=== PATIENT | female | born 2005 | race African-American/Black ===

== ENCOUNTER 2023-10-16 17:34 | Inpatient (IN) ==
[2023-10-16] MEDS ORDERED: Patient's ALLERGY Info needs ENTERED SCH (17:55)
[2023-10-16 18:59] LABS: Influenza A virus by PCR Negative (Neg); Influenza B virus by PCR Negative (Neg); RSV by PCR Negative (Neg); SARS CoV2 RNA(COVID-19) Ceph POSITIVE (Negative)
--- NOTE | 2023-10-16 19:14 | Emergency Department Note ---
Impression & Plan COVID-19, Anemia, Asplenia, Sickle cell anemia ED Provider Note NAME: FELICIANO FUENTES AGE: 18 SEX: F : 2005 ARRIVES VIA: Walk-In INFORMANT: Patient, ED PROVIDER(S): Jenifer Romero MD CHIEF COMPLAINT: Fever, cough, sickle cell HPI: This is a 18 old female presenting for fever, cough and sickle cell disease. Patient has a history of sickle cell, follows with [facility]. She is asplenic. Notes that over the past 3 days she has developed a fever, cough, congestion. She notes she has had previous acute chest and this feels much less severe. She notes some taking Motrin for fever. Otherwise she notes no abdominal pain, chest pain, nausea, vomiting or diarrhea. ROS: See above HPI for pertinent positives & negatives. A total of 10 systems reviewed and were otherwise negative. PAST MEDICAL HISTORY: See Below PAST SURGICAL HISTORY: See Below FAMILY HISTORY: See Below SOCIAL HISTORY: See Below HOME MEDICATIONS: See Below ALLERGIES: See Below VITALS: See Below PHYSICAL EXAMINATION: General: resting comfortably in no acute distress Head: Normocephalic and atraumatic Eyes: Normal inspection, extraocular muscles intact Ear, nose, throat: Normal external exam Neck: Normal range of motion Respiratory: lungs clear to auscultation bilaterally Cardiovascular: Regular rate/rhythm, no murmur GI: soft, nontender, no guarding or rebound Extremities: nontender, moves all extremities Neuro: The patient awake and alert, appropriately conversive, no focal deficits, symmetric faces Skin: Warm, dry, and intact MEDICAL DECISION MAKING: This is a pleasant 18-year-old female sent for fever, cough in the setting of sickle cell disease. Will rule out acute chest as well as other abnormalities with blood work. Will check for liver function, hemolytic anemia, pneumonia or acute chest. -Chest Xray independently interpreted by me showing no pneumothorax, focal opacity, or pleural effusions. -Patient blood come to the with leukocytosis of 12.24, otherwise anemia of 6.3. -She has slight hypokalemia to 3.2 at this time. Otherwise electrolytes are within normal limits. She is COVID-19 positive at this time. -Reticulocyte count is not low -Overall she is well-appearing however with her asplenia, will likely admit based on her clinical syndrome. Will order 1 unit PRBC due to anemia -Patient request I discussed with [facility], her esthetic dermatologist -Discussed with Dr. Stratton, esthetic dermatologist at [facility] who recommends admitting for observation x 1 day. She also recommends ceftriaxone administration preventatively for patient asplenia. She was able to check records and notes that her baseline hemoglobin is between 6 and 7 and they would defer giving blood until she is symptomatic or below 6. -Patient made aware of these findings and plan, she is comfortable with this plan. -Discussed with blood bank and canceled the unit of blood. They will still order the blood from the [place] in case she does need this tomorrow or during her admission -Discussed with Dr. Ordaz for admission Differential diagnosis: Sickle cell crisis, acute chest, upper respiratory infection, pneumonia, hemolytic anemia ER treatment provided: See below Independent History obtained from: [facility] interpreted by me: ECG: None Cardiac Monitoring: An order was placed for continuous cardiac monitoring. The monitor shows a rate of 73 with sinus rhythm. Laboratory studies: As stated above and show below. Imaging studies: See below. Past Med/Surg History Problem List (Updated 10/17/23 @ 11:30 by Jenifer Romero MD) Sickle cell anemia (Acute) Asplenia (Acute) Anemia (Acute) COVID-19 (Acute) Medical History (Updated 10/17/23 @ 11:30 by Jenifer Romero MD) Asplenia Sickle cell anemia Surgical History (Updated 10/16/23 @ 22:15 by Africa Ordaz DO) History of splenectomy Family History (Updated 10/16/23 @ 22:15 by Africa Ordaz DO) Other No significant family history Social History (Updated 10/16/23 @ 22:15 by Africa Ordaz DO) Smoking Status: Never smoker Second Hand Exposure: No; Do You Dip or Chew Tobacco: No; Hx Alcohol Use: Yes (socially) Hx Substance Use: No Preferred Language: Belarusian Communication Ability: Effective [employer] Required: No Beliefs That Will Affect Care: None Current Living Situation: Family Feels Safe at Home: Yes Assistive Devices: None Allergies Allergies Allergy/AdvReac Type Severity Reaction Status Date / Time ceftriaxone Allergy FACIAL Verified 10/16/23 22:03 SWELLING fentanyl Allergy Itching Verified 10/16/23 21:59 hydromorphone Allergy Itching Verified 10/16/23 22:01 morphine Allergy Itching Verified 10/16/23 21:58 oxycodone Allergy Itching Verified 10/16/23 22:00 Home Meds Home Medications Medication Instructions Recorded Confirmed folic acid 1 mg tablet 1 mg PO DAILY 10/16/23 10/16/23 hydroxyurea (sickle cell) 400 mg 1,600 mg PO Q2D 10/16/23 10/16/23 capsule (Droxia) penicillin V potassium 250 mg 250 mg PO BID 10/16/23 10/16/23 tablet Results & Data (ED) Vital Signs Vital Signs - 24 hr 10/16/23 17:55 10/16/23 19:36 10/16/23 20:00 Temperature 39.5 C H Temperature Source Oral Pulse Rate 108 H Pulse Rate [Finger] 85 90 Pulse Rhythm [Finger] Regular Regular Pulse Strength [Finger] Normal Respiratory Rate 18 20 18 Respiratory Effort / Characteristics Non-Labored Spontaneous Non-Labored Non-Labored Respiratory Depth Normal Normal Normal Respiratory Pattern Regular Blood Pressure 111/64 Blood Pressure [Left Arm] 94/64 L 101/58 L Blood Pressure Mean 79 Blood Pressure Mean [Left Arm] 74 72 Blood Pressure Position Sitting Pulse Oximetry 95 95 98 Oxygen Delivery Method Room Air Room Air Room Air Sepsis Recent Fever Within 48 Hours No Sepsis New/Unexplained Change in Mental Status N/A Sepsis Action Taken by Nursing No Action Required 10/16/23 21:00 Temperature 38.2 C H Temperature Source Oral Pulse Rate Pulse Rate [Finger] 89 Pulse Rhythm [Finger] Regular Pulse Strength [Finger] Normal Respiratory Rate 18 Respiratory Effort / Characteristics Non-Labored Respiratory Depth Normal Respiratory Pattern Blood Pressure Blood Pressure [Left Arm] 106/63 Blood Pressure Mean Blood Pressure Mean [Left Arm] 77 Blood Pressure Position Pulse Oximetry 97 Oxygen Delivery Method Room Air Sepsis Recent Fever Within 48 Hours Sepsis New/Unexplained Change in Mental Status Sepsis Action Taken by Nursing Laboratory Data 10/17/23 06:48 10/17/23 06:48 Lab Results 10/16/23 10/16/23 10/16/23 Range/Units 19:20 20:36 20:36 WBC 12.24 H (4.8-10.8) K/ul RBC 2.96 L (4.20-5.40) M/uL Hgb 6.3 L* (12.0-16.0) g/dl Hct 19.6 L* (37.0-47.0) % MCV 66.2 L (80.0-100.0) fL MCH 21.3 L (25.0-34.0) pg MCHC 32.1 (32.0-36.0) g/dL RDW Std Deviation 51.3 H (36.4-46.3) fL RDW Coeff of Kaelyn 24.1 H (11.5-14.5) % Plt Count 283 (130-400) K/uL MPV 10.7 (9.4-12.4) fL Immature Gran % (Auto) 1.2 % Neut % (Auto) 65.4 % Lymph % (Auto) 11.0 % [place] % (Auto) 22.0 % Eos % (Auto) 0.2 % Baso % (Auto) 0.2 % Reticulocyte % (Auto) 9.34 H (0.50-2.00) % Neut # (Auto) 7.99 H (1.40-6.50) K/uL Lymph # (Auto) 1.35 (1.20-3.40) K/uL [place] # (Auto) 2.69 H (0.11-0.59) K/uL Eos # (Auto) 0.03 (0.00-0.50) K/uL Baso # (Auto) 0.03 (0.00-0.20) K/uL Reticulocyte # 0.280 H (0.020-0.100) 10^6/uL Immature Gran # (Auto) 0.15 (0.01-0.20) K/uL Absolute Nucleated RBC 8.66 H (0.00-0.12) K/uL Nucleated RBC % (auto) 70.8 % Polychromasia 2+ Anisocytosis Present Pappenheimer Bodies 2+ Sickle Cells 1+ Target Cells 2+ Sodium 135 L (136-145) mmol/L Potassium 3.2 L (3.5-5.1) mmol/L Chloride 104 (98-107) mmol/L Carbon Dioxide 23 (21-32) mmol/L Anion Gap 8 (3-11) BUN 6 (6-23) mg/dl Creatinine 0.64 (0.6-1.2) mg/dl Est Cr Clr Drug Dosing 100.7 ml/min Est GFR ( Amer) 148.9 ml/min Est GFR (Non-Af Amer) 128.5 ml/min BUN/Creatinine Ratio 9.4 L (10-20) Glucose 90 (70-99(Fasting)) mg/dl Lactate (0.4-2.0) mmol/L Calcium 8.6 (8.6-10.3) mg/dl Total Bilirubin 3.3 H (0.2-1.0) mg/dl AST 27 (13-39) U/L ALT 11 (7-52) U/L Alkaline Phosphatase 67 (34-104) U/L Total Protein 7.5 (6.0-8.3) gm/dl Albumin 4.6 (3.4-5.0) gm/dl Globulin 2.9 (2.5-4.0) gm/dl Albumin/Globulin Ratio 1.6 (0.9-2) Procalcitonin 0.03 (0-0.5) ng/ml Blood Type O Positive Blood Type Recheck Antibody Screen NEGATIVE Antigen Identification C Antigen - NEGATIVE E Antigen - NEGATIVE Crossmatch 10/16/23 10/16/23 10/16/23 Range/Units 20:36 20:48 21:20 WBC (4.8-10.8) K/ul RBC (4.20-5.40) M/uL Hgb (12.0-16.0) g/dl Hct (37.0-47.0) % MCV (80.0-100.0) fL MCH (25.0-34.0) pg MCHC (32.0-36.0) g/dL RDW Std Deviation (36.4-46.3) fL RDW Coeff of Kaelyn (11.5-14.5) % Plt Count (130-400) K/uL MPV (9.4-12.4) fL Immature Gran % (Auto) % Neut % (Auto) % Lymph % (Auto) % [place] % (Auto) % Eos % (Auto) % Baso % (Auto) % Reticulocyte % (Auto) (0.50-2.00) % Neut # (Auto) (1.40-6.50) K/uL Lymph # (Auto) (1.20-3.40) K/uL [place] # (Auto) (0.11-0.59) K/uL Eos # (Auto) (0.00-0.50) K/uL Baso # (Auto) (0.00-0.20) K/uL Reticulocyte # (0.020-0.100) 10^6/uL Immature Gran # (Auto) (0.01-0.20) K/uL Absolute Nucleated RBC (0.00-0.12) K/uL Nucleated RBC % (auto) % Polychromasia Anisocytosis Pappenheimer Bodies Sickle Cells Target Cells Sodium (136-145) mmol/L Potassium (3.5-5.1) mmol/L Chloride (98-107) mmol/L Carbon Dioxide (21-32) mmol/L Anion Gap (3-11) BUN (6-23) mg/dl Creatinine (0.6-1.2) mg/dl Est Cr Clr Drug Dosing ml/min Est GFR ( Amer) ml/min Est GFR (Non-Af Amer) ml/min BUN/Creatinine Ratio (10-20) Glucose (70-99(Fasting)) mg/dl Lactate 0.9 (0.4-2.0) mmol/L Calcium (8.6-10.3) mg/dl Total Bilirubin (0.2-1.0) mg/dl AST (13-39) U/L ALT (7-52) U/L Alkaline Phosphatase (34-104) U/L Total Protein (6.0-8.3) gm/dl Albumin (3.4-5.0) gm/dl Globulin (2.5-4.0) gm/dl Albumin/Globulin Ratio (0.9-2) Procalcitonin (0-0.5) ng/ml Blood Type Blood Type Recheck O Positive Antibody Screen Antigen Identification K Antigen - NEGATIVE Crossmatch See Detail Administered Medications Acetaminophen (Acetaminophen 325 Mg Tab) 650 mg PO Q6H PRN PRN Reason: pain(1-4),headache,fever Stop: 11/15/23 21:32 Last Admin: 10/17/23 03:17 Dose: 650 mg Documented By: [employer] Enoxaparin Sodium (Enoxaparin Inj 30 Mg/0.3 Ml Syr) 30 mg SQ QAM TALYA Stop: 11/16/23 08:59 Last Admin: 10/17/23 10:00 Dose: 30 mg Documented By: AB Folic Acid (Folic Acid 1 Mg Tab) 1 mg PO DAILY TALYA Stop: 11/16/23 08:59 Last Admin: 10/17/23 10:00 Dose: 1 mg Documented By: JOYCELYN Hydroxyurea (Hydroxyurea 500 Mg Cap) 1,500 mg PO HS TALYA Stop: 11/15/23 23:29 Last Admin: 10/17/23 00:50 Dose: 1,500 mg Documented By: ORTIZ Co-signed By: PIPE Penicillin V Potassium (Penicillin V Potassium 250 Mg Tab) 250 mg PO BID TALYA Stop: 11/15/23 22:40 Last Admin: 10/17/23 10:00 Dose: 250 mg Documented By: Admin: 10/17/23 00:50 Dose: 250 mg Documented By: ORTIZ Discontinued Medications Sodium Chloride (Nss) 1,000 mls @ 999 mls/hr IV .Q1H1M ONE Stop: 10/16/23 19:07 Last Infusion: 10/16/23 20:20 Dose: Infused Documented By: Admin: 10/16/23 19:18 Dose: 999 mls/hr Documented By: HB Acetaminophen (Ofirmev) 1,000 mg in 100 mls @ 400 mls/hr IV NOW STA Stop: 10/16/23 20:48 Last Infusion: 10/16/23 21:00 Dose: Infused Documented By: Admin: 10/16/23 20:41 Dose: 400 mls/hr Documented By: HB Ceftriaxone Sodium (Rocephin) 1,000 mg in 50 mls @ 100 mls/hr IV NOW STA Stop: 10/16/23 21:28 Last Infusion: 10/16/23 21:55 Dose: Infused Documented By: Admin: 10/16/23 21:24 Dose: 100 mls/hr Documented By: HB Remdesivir 200 mg/ Sodium (Chloride) 250 mls @ 125 mls/hr IV ONE STA; Protocol Stop: 10/16/23 23:16 Last Infusion: 10/17/23 03:05 Dose: Infused Documented By: [employer] Admin: 10/16/23 22:48 Dose: 125 mls/hr Documented By: ORTIZ Sodium Chloride (1/2 Nss) 1,000 mls @ 80 mls/hr IV .[id number] TALYA Stop: 10/17/23 10:14 Last Infusion: 10/17/23 11:05 Dose: 0 mls/hr Documented By: Infusion: 10/17/23 11:04 Dose: 0 mls/hr Documented By: Admin: 10/16/23 22:48 Dose: 80 mls/hr Documented By: ORTIZ Ketorolac Tromethamine (Ketorolac Tromethamine 15 Mg/Ml Vial) 15 mg IV NOW ONE Stop: 10/16/23 18:08 Last Admin: 10/16/23 19:18 Dose: 15 mg Documented By: Imaging Data Radiologist's Impression: Chest X-Ray 10/16/23 18:07 SINGLE VIEW CHEST CLINICAL HISTORY: Acute chest. Cough and fever. History of sickle cell. FINDINGS: A PA chest radiograph is obtained. No prior studies are available for comparison at the time of dictation. The cardiomediastinal silhouette is unremarkable. The lungs and pleural spaces are clear. No pneumothorax is seen. The bony thorax is grossly intact. IMPRESSION: No acute cardiopulmonary abnormality. ACT 112: Negative or not required by law. Electronically signed by: Ja Metzger M.D. 10/17/2023 6:43 AM Discharge Plan Visit Data Chief Complaint: Fever Stated Complaint: FEVER, COUGH SYCIAL CELL DISEASE ED Provider: Jenifer Romero Discharge Problem: COVID-19, Anemia, Asplenia, Sickle cell anemia Patient Disposition: Admitted As Inpatient Discharge Instructions Interventions: ED Discharge Assessment Last Done: 10/16/23 22:25
[2023-10-16] MEDS: SODIUM CHLORIDE 0.9% 1,000 ML IV ONE (19:18)
[2023-10-16] MEDS: KETOROLAC TROMETHAMINE 15 MG/ML VIAL IV ONE (19:18)
[2023-10-16 20:05] LABS: Hematocrit (blood only) 19.6 % (37.0-47.0); Hemoglobin 6.3 g/dl (12.0-16.0); Mean Corpuscular Hemoglobin 21.3 pg (25.0-34.0); Mean Corpuscular Hgb Conc 32.1 g/dL (32.0-36.0); Mean Corpuscular Volume 66.2 fL (80.0-100.0); Mean Platelet Volume 10.7 fL (9.4-12.4); Nucleated RBC # (auto) 8.66 K/uL (0.00-0.12); Nucleated RBC % (auto) 70.8 %; Platelet Count 283 K/uL (130-400); RDW Coefficient of Variation 24.1 % (11.5-14.5); RDW Standard Deviation 51.3 fL (36.4-46.3); Red Blood Count 2.96 M/uL (4.20-5.40); White Blood Count 12.24 K/ul (4.8-10.8)
[2023-10-16 20:07] LABS: Albumin Globulin Ratio 1.6 (0.9-2); Albumin Level 4.6 gm/dl (3.4-5.0); BUN Creatinine Ratio 9.4 (10-20); Bilirubin,Total 3.3 mg/dl (0.2-1.0); Calcium 8.6 mg/dl (8.6-10.3); Creatinine Clr Calc Pharmacy 100.7 ml/min; Est GFR (African American) 148.9 ml/min; Est GFR (Non-African American) 128.5 ml/min; Globulin 2.9 gm/dl (2.5-4.0); Potassium 3.2 mmol/L (3.5-5.1); Total Protein 7.5 gm/dl (6.0-8.3)
[2023-10-16] MEDS ORDERED: SODIUM CHLORIDE 0.9% 250 ML IV PRN (20:28)
[2023-10-16 20:29] LABS: Basophils # (auto) 0.03 K/uL (0.00-0.20); Basophils % (auto) 0.2 %; Eosinophils # (auto) 0.03 K/uL (0.00-0.50); Eosinophils % (auto) 0.2 %; Immature Granulocytes # (auto) 0.15 K/uL (0.01-0.20); Immature Granulocytes % (auto) 1.2 %; Lymphocytes # (auto) 1.35 K/uL (1.20-3.40); Monocytes # (auto) 2.69 K/uL (0.11-0.59); Neutrophils # (auto) 7.99 K/uL (1.40-6.50); Neutrophils % (auto) 65.4 %
[2023-10-16 20:35] LABS: Anisocytosis Present; Pappenheimer Bodies 2+; Polychromasia 2+; Sickle Cells 1+; Target Cells 2+
[2023-10-16] MEDS: ACETAMINOPHEN 1,000 MG/100 ML VIAL IV STA (20:41)
[2023-10-16 20:48] LABS: Reticulocyte % 9.34 % (0.50-2.00)
[2023-10-16] MEDS: cefTRIAXone SODIUM 1,000 MG/50 ML BAG IV STA (21:24)
[2023-10-16] MEDS ORDERED: ALBUTEROL 0.083% NEBU SOLN 3 ML VIAL NEB PRN (21:41)
[2023-10-16] MEDS ORDERED: diphenhydrAMINE 50 MG/ML VIAL IV PRN (21:45)
--- NOTE | 2023-10-16 21:52 | History & Physical Report ---
Date of Service October 16, 2023 Assessment & Plan (1) COVID-19: Plan: 18yo female with history of sickle cell anemia, s/p splenectomy presenting with Covid-19 infection. Patient is febrile upon arrival. Otherwise stable hemodynamics and respiratory status - saturating 98% on room air. Patient with no prior Covid-19 infections. -Admit to medical with telemetry -Maintain Covid-19 isolation precautions -Per recommendation of [facility] Hematology, will initiate treatment with Remdesivir - can be used in patients at risk for developing severe disease. -Tylenol as needed for pain or fever (2) Sickle cell anemia: Plan: Patient with sickle cell anemia. She follows with [facility] in [place]. Reports that her baseline Hgb is around 6-6.5. No current complaints - no pain, no SOB at present. -Continue Folic Acid 1mg po daily -Continue Hydroxyurea - patient is on 1600mg po q 2 days -Continue PCN-V 250mg po BID -Repeat CBC in AM -Gentle IVF 1/ NSS at 80mL/hr x 1L (3) Asplenia: Plan: Noted. Patient reports that she is up to date with her recommended vaccinations. -Monitor closely for sepsis -Continue PCN-V 250mg po BID Of note, patient did receive 1gm of Ceftriaxone at 21:24. Patient has a confirmed Ceftriaxone allergy which resulted in facial swelling. Presently without symptoms. -Monitor closely for development of allergy symptoms, facial swelling, etc -Benadryl PRN. Nursing is to notify provider if Benadryl is needed so patient can be reassessed at bedside F/E/N - 1/2 NSS at 80mL/hr x 1L, electrolytes WNL, Regular diet as tolerated Ppx - Lovenox 30mg SQ daily for DVT prophylaxis in Covid-19 Code - Full per discussion with patient Dispo - Admit to medical with telemetry History of Present Illness Chief Complaint: fever Primary Care Provider: NO PCP Deangelo Galo is a 18yo female with sickle cell disease, asplenia presenting with Covid-19 and fever. Patient reports developing a fever yesterday AM 10/15/23 with Tmax of 104 as well as generalized weakness, cough productive for scant sputum. Patient has never had Covid-19 before and has not received any Covid-19 vaccinations. Patient with sickle cell anemia. She follows with [facility]. She is compliant with her home medications - Folic Acid, Hydroxyurea and PCN V. She reports that her baseline Hgb is 6-6.5. At present she reports no evidence of sickle cell crisis. Denies pain, chest discomfort or shortness of breath. In the ER patient febrile to Tm=39.5, hemodynamically stable. No respiratory distress. Adequate oxygenation on room air - presently 98% Case was discussed between [facility] Hematology and ER attending ER Course: Ceftriaxone 1gm IV Tylenol 1gm Toradol 15mg IV NSS x 1L Allergies Allergy/AdvReac Type Severity Reaction Status Date / Time ceftriaxone Allergy FACIAL Verified 10/16/23 22:03 SWELLING fentanyl Allergy Itching Verified 10/16/23 21:59 hydromorphone Allergy Itching Verified 10/16/23 22:01 morphine Allergy Itching Verified 10/16/23 21:58 oxycodone Allergy Itching Verified 10/16/23 22:00 Home Medications Medication Instructions Recorded Confirmed Type folic acid 1 mg tablet 1 mg PO DAILY 10/16/23 10/16/23 History hydroxyurea (sickle cell) 400 mg 1,600 mg PO Q2D 10/16/23 10/16/23 History capsule (Droxia) penicillin V potassium 250 mg 250 mg PO BID 10/16/23 10/16/23 History tablet Past Med/Surg History Problem List (Updated 10/16/23 @ 22:17 by Africa Ordaz DO) COVID-19 Medical History (Updated 10/16/23 @ 22:17 by Africa Ordaz DO) Asplenia Sickle cell anemia Surgical History (Updated 10/16/23 @ 22:15 by Africa Ordaz DO) History of splenectomy Family History (Updated 10/16/23 @ 22:15 by Africa Ordaz DO) Other No significant family history Social History (Updated 10/16/23 @ 22:15 by Africa Ordaz DO) Smoking Status: Never smoker Hx Alcohol Use: Yes (social use) Hx Substance Use: No Feels Safe at Home: Yes Review of Systems Review of Systems: All systems reviewed & are unremarkable except as noted in HPI & below Physical Exam Physical Exam: General: patient resting comfortably, NAD, non-toxic in appearance, AA&O x 4 Skin: warm, dry, intact, no rashes or lesions HEENT: NC/AT, PERRL, EOMI, anicteric sclera, conjunctiva without injection, external ear normal to inspection and nontender, nares patent, moist mucus membranes, dentition intact, no oropharyngeal lesions, neck supple, trachea midline, no LAD, no thyromegaly, no JVD Heart: +S1/S2, regular, no m/r/g Lungs: equal air entry bilaterally, no rales/rhonchi/wheezes Abd: +BS, soft, NT/ND, no masses/organomegaly/ascites Ext: warm, 2+ pulses in UE/LE bilaterally, no clubbing/cyanosis or edema Neuro: nonfocal, patient AA&O x 4, speech intact, no facial droop, moving all extremities on command with equal strength 5/5 Results & Data Results & Data Vital Signs (Past 12 Hours) Vital Signs Temp Pulse Pulse Resp BP BP Pulse Ox 10/16/23 19:36 85 20 94/64 L 95 10/16/23 17:55 39.5 C H 108 H 18 111/64 95 O2 Del Method 10/16/23 19:36 Room Air 10/16/23 17:55 Room Air Laboratory Results Laboratory Results WBC 12.24 K/ul (4.8-10.8) H 10/16/23 19:20 RBC 2.96 M/uL (4.20-5.40) L 10/16/23 19:20 Hgb 6.3 g/dl (12.0-16.0) L* 10/16/23 19:20 Hct 19.6 % (37.0-47.0) L* 10/16/23 19:20 MCV 66.2 fL (80.0-100.0) L 10/16/23 19:20 MCH 21.3 pg (25.0-34.0) L 10/16/23 19:20 MCHC 32.1 g/dL (32.0-36.0) 10/16/23 19:20 RDW Std Deviation 51.3 fL (36.4-46.3) H 10/16/23 19:20 RDW Coeff of Kaelyn 24.1 % (11.5-14.5) H 10/16/23 19:20 Plt Count 283 K/uL (130-400) 10/16/23 19:20 MPV 10.7 fL (9.4-12.4) 10/16/23 19:20 Immature Gran % (Auto) 1.2 % 10/16/23 19:20 Neut % (Auto) 65.4 % 10/16/23 19:20 Lymph % (Auto) 11.0 % 10/16/23 19:20 [place] % (Auto) 22.0 % 10/16/23 19:20 Eos % (Auto) 0.2 % 10/16/23 19:20 Baso % (Auto) 0.2 % 10/16/23 19:20 Reticulocyte % (Auto) 9.34 % (0.50-2.00) H 10/16/23 19:20 Neut # (Auto) 7.99 K/uL (1.40-6.50) H 10/16/23 19:20 Lymph # (Auto) 1.35 K/uL (1.20-3.40) 10/16/23 19:20 [place] # (Auto) 2.69 K/uL (0.11-0.59) H 10/16/23 19:20 Eos # (Auto) 0.03 K/uL (0.00-0.50) 10/16/23 19:20 Baso # (Auto) 0.03 K/uL (0.00-0.20) 10/16/23 19:20 Reticulocyte # 0.280 10^6/uL (0.020-0.100) H 10/16/23 19:20 Immature Gran # (Auto) 0.15 K/uL (0.01-0.20) 10/16/23 19:20 Absolute Nucleated RBC 8.66 K/uL (0.00-0.12) H 10/16/23 19:20 Nucleated RBC % (auto) 70.8 % 10/16/23 19:20 Polychromasia 2+ 10/16/23 19:20 Anisocytosis Present 10/16/23 19:20 Pappenheimer Bodies 2+ 10/16/23 19:20 Sickle Cells 1+ 10/16/23 19:20 Target Cells 2+ 10/16/23 19:20 Sodium 135 mmol/L (136-145) L 10/16/23 19:20 Potassium 3.2 mmol/L (3.5-5.1) L 10/16/23 19:20 Chloride 104 mmol/L (98-107) 10/16/23 19:20 Carbon Dioxide 23 mmol/L (21-32) 10/16/23 19:20 Anion Gap 8 (3-11) 10/16/23 19:20 BUN 6 mg/dl (6-23) 10/16/23 19:20 Creatinine 0.64 mg/dl (0.6-1.2) 10/16/23 19:20 Est Cr Clr Drug Dosing 100.7 ml/min 10/16/23 19:20 Est GFR ( Amer) 148.9 ml/min 10/16/23 19:20 Est GFR (Non-Af Amer) 128.5 ml/min 10/16/23 19:20 BUN/Creatinine Ratio 9.4 (10-20) L 10/16/23 19:20 Glucose 90 mg/dl (70-99(Fasting)) 10/16/23 19:20 Lactate 0.9 mmol/L (0.4-2.0) 10/16/23 21:20 Calcium 8.6 mg/dl (8.6-10.3) 10/16/23 19:20 Total Bilirubin 3.3 mg/dl (0.2-1.0) H 10/16/23 19:20 AST 27 U/L (13-39) 10/16/23 19:20 ALT 11 U/L (7-52) 10/16/23 19:20 Alkaline Phosphatase 67 U/L (34-104) 10/16/23 19:20 Total Protein 7.5 gm/dl (6.0-8.3) 10/16/23 19:20 Albumin 4.6 gm/dl (3.4-5.0) 10/16/23 19:20 Globulin 2.9 gm/dl (2.5-4.0) 10/16/23 19:20 Albumin/Globulin Ratio 1.6 (0.9-2) 10/16/23 19:20 Procalcitonin 0.03 ng/ml (0-0.5) 10/16/23 20:36 SARS-CoV-2 (PCR) POSITIVE (Negative) A 10/16/23 Unknown Influenza Type A (PCR) Negative (Neg) 10/16/23 Unknown Influenza Type B (PCR) Negative (Neg) 10/16/23 Unknown RSV (RT-PCR) Negative (Neg) 10/16/23 Unknown Blood Type O Positive 10/16/23 20:36 Blood Type Recheck O Positive 10/16/23 20:48 Antibody Screen NEGATIVE 10/16/23 20:36 Antigen Identification C Antigen - NEGATIVE E Antigen - NEGATIVE K Antigen - NEGATIVE 10/16/23 20:36 Antigen Identification C Antigen - NEGATIVE E Antigen - NEGATIVE K Antigen - NEGATIVE 10/16/23 20:36 Antigen Identification C Antigen - NEGATIVE E Antigen - NEGATIVE K Antigen - NEGATIVE 10/16/23 20:36 Crossmatch See Detail 10/16/23 20:36 Diagnostic Findings CXR per my interpretation with normal cardiac shadow. No evidence of infiltrate, edema or pneumothorax Code Status & VTE Plan VTE Prophylaxis Plan VTE Prophylaxis will be ordered: Yes PG Care Time/CCT Total # of Minutes Spent Total Time Spent with Patient: Total time spent is greater than 50% in coordination of care (as documented) at patient's floor/unit and/or counseling patient: Coding Level of Care Code 20521 INT INP/OBS CARE 255MIN Diagnoses COVID-19 U07.1 Sickle cell anemia D57.1 Asplenia Q89.01
[2023-10-16] MEDS: SODIUM CHLORIDE 0.45 % 1,000 ML IV SCH (22:48)
[2023-10-16] MEDS: REMDESIVIR 200 MG in SODIUM CHLORIDE 0.9% 210 ML IV STA (22:48)
[2023-10-17] MEDS: PENICILLIN V POTASSIUM 250 MG TAB PO SCH (00:50)
[2023-10-17] MEDS: HYDROXYUREA 500 MG CAP PO SCH (00:50)
[2023-10-17] MEDS: ACETAMINOPHEN 325 MG TAB PO PRN (03:17)
--- NOTE | 2023-10-17 06:46 | XRay Report ---
SINGLE VIEW CHEST CLINICAL HISTORY: Acute chest. Cough and fever. History of sickle cell. FINDINGS: A PA chest radiograph is obtained. No prior studies are available for comparison at the mari e of dictation. The cardiomediastinal silhouette is unremarkable. The lungs and pleural spaces are cl ear. No pneumothorax is seen. The bony thorax is grossly intact. IMPRESSION: No acute cardiopulmonary abnormality. ACT 112: Negative or not required by law. Electronically signed by: Ja Metzger M.D. 10/17/2023 6:43 AM
--- NOTE | 2023-10-17 07:44 | Hospitalist Progress Note ---
Date of Service October 17, 2023 Assessment & Plan (1) Sickle cell anemia: (2) Asplenia: (3) Anemia: (4) COVID-19: Plan Pt is a 18 yo female with a past med hx of sickle cell disease with chronic anemia and asplenia who presents for COVID-19 infection and fever in asplenic p t. COVID-19 - Patient is febrile upon arrival, otherwise stable hemodynamics and respiratory status - saturating 98% on room air - Patient with no prior Covid-19 infections. -Per recommendation of [facility] Hematology, will initiate treatment with Remdesivir - can be used in patients at risk for developing severe disease -Tylenol as needed for pain or fever Sickle cell anemia - Patient with sickle cell anemia. She follows with [facility] in [place]. Reports that her baseline Hgb is around 6-6.5. No current complaints - no pain, no SOB at present. -Continue Folic Acid 1mg po daily -Continue Hydroxyurea - patient is on 1600mg po q 2 days -Continue PCN-V 250mg po BID - hemoglobin this morning 5.3 - called [facility] team this morning ([phone]), recommended holding off on transfusion unless pt becomes symptomatic or perhaps below 4.9 but to call prior to transfusion so they are aware, will recheck H&H this evening Asplenia Noted. Patient reports that she is up to date with her recommended vaccinations. -Monitor closely for sepsis -Continue PCN-V 250mg po BID - blood cx pending Of note, patient did receive 1gm of Ceftriaxone at last night at 21:24. Patient has a confirmed Ceftriaxone allergy which resulted in facial swelling. Presently without symptoms. -Monitor closely for development of allergy symptoms, facial swelling, etc -Benadryl PRN. Nursing is to notify provider if Benadryl is needed so patient can be reassessed at bedside VTE ppx - Lovenox 30mg SQ daily for DVT prophylaxis in Covid-19 Admission and Anticipated Discharge Date Admission Date: October 16, 2023 Supervising Physician Co-Signing Physician Notes ATTESTATION I also saw the patient and confirmed rendon portions of the history and exam. I agree with the impression and plan in the resident documentation, and as summarized below. 18-year-old female with history of sickle cell status post splenectomy visiting from her home in [place] admitted with COVID-19. She started feeling unwell around the first of the month. She has been afebrile since admission. She really does not feel too bad in terms of the COVID-19 symptoms, but presents to the emergency department given her history. Her main complaint today is fatigue. Admission team and inpatient team today spoke with her endoscopy specialty technician at [facility] who advised initiating remdesivi r. EXAM 120/25, 74, 18, 37.5, 98% on room air She is pleasant. Alert. No distress appreciated. Heart regular rate and rhythm Lungs clear throughout with nonlabored respirations Abdomen soft and nontender DATA Labs Hemoglobin 5.3, platelet count 202. Potassium 3.1, BUN 7, creatinine 0.48. Total bilirubin 2.2. Imaging Chest x-ray completed upon admission shows no acute cardiopulmonary abnormality. Micro Blood cultures collected 10/16/2023 upon admission are pending. IMPRESSION & PLAN Acute COVID-19 Asplenia Anemia Sickle cell Consultation by phone with her endoscopy specialty technician in [place]. Remdesivir is recommended Monitor hemoglobin; transfusion not indicated at this point. No signs or symptoms of sickle cell crisis. Additional per resident documentation Subjective Pt seen at bedside this morning. She states that she started having symptoms of congestion and fever on 10/13. Has never had a known COVID infection before. She states today she feels tired and congested still, but no chest pain or SOB. She states that when she has a sickle cell crisis she normally gets diffuse severe joint pains. She normally follows with hematology at [facility] and gave verbal c onsent for us to talk to them for recommendations on her hemoglobin level. She has had transfusions before but states they normally only transfuse when her levels are around 5, so she normally sits around 6-6.5 or sometimes higher for her hemoglobin. No pain anywhere right now, does not think she has a sickle cell crisis at this point. No questions or complaints otherwise at this time. Review of Systems Review of Systems: Per HPI. Physical Exam Physical Exam: General:Alert and oriented, no acute distress, HEENT: Normocephalic, moist oral mucosa, Cardio: Regular rate and rhythm, no murmur, Resp:Lungs clear to auscultation b/l, no wheezes or rhonchi, Skin: Warm, pink, dry, Results & Data Results & Data Vital Signs (Past 12 Hours) Vital Signs Temp Pulse Pulse Resp BP Pulse Ox O2 Del Method 10/17/23 07:06 64 10/17/23 04:00 37 C 10/17/23 02:48 38.1 C H 92 H 18 98/56 L 93 Room Air 10/16/23 23:01 37 C 79 16 113/79 95 Room Air 10/16/23 22:49 81 10/16/23 22:41 37 C 79 16 113/79 95 10/16/23 22:00 37.4 C 88 18 96/69 L 97 Room Air 10/16/23 21:00 38.2 C H 89 18 106/63 97 Room Air 10/16/23 20:00 90 18 101/58 L 98 Room Air Resident Activity Tracking Resident Involvement: Resident Care Provided Care Provided: Adult Hospital Medicine
[2023-10-17 07:46] LABS: Hematocrit (blood only) 16.4 % (37.0-47.0); Hemoglobin 5.3 g/dl (12.0-16.0); Mean Corpuscular Hemoglobin 21.1 pg (25.0-34.0); Mean Corpuscular Hgb Conc 32.3 g/dL (32.0-36.0); Mean Corpuscular Volume 65.3 fL (80.0-100.0); Mean Platelet Volume 10.7 fL (9.4-12.4); Nucleated RBC # (auto) 6.72 K/uL (0.00-0.12); Nucleated RBC % (auto) 71.2 %; Platelet Count 202 K/uL (130-400); RDW Coefficient of Variation 23.9 % (11.5-14.5); RDW Standard Deviation 52.4 fL (36.4-46.3); Red Blood Count 2.51 M/uL (4.20-5.40); White Blood Count 9.44 K/ul (4.8-10.8)
[2023-10-17 07:55] LABS: Alanine Aminotransferase 8 U/L (7-52); Albumin Globulin Ratio 1.5 (0.9-2); Albumin Level 3.7 gm/dl (3.4-5.0); Alkaline Phosphatase 55 U/L (34-104); Anion Gap 5 (3-11); Aspartate Aminotransferase 28 U/L (13-39); BUN Creatinine Ratio 14.6 (10-20); Bilirubin,Total 2.2 mg/dl (0.2-1.0); Blood Urea Nitrogen 7 mg/dl (6-23); Calcium 7.7 mg/dl (8.6-10.3); Carbon Dioxide 24 mmol/L (21-32); Chloride 109 mmol/L (98-107); Creatinine Clr Calc Pharmacy 134.3 ml/min; Est GFR (African American) > 150.0 ml/min; Est GFR (Non-African American) 141.2 ml/min; Globulin 2.4 gm/dl (2.5-4.0); Glucose 81 mg/dl (70-99(Fasting)); Magnesium 1.9 mg/dl (1.7-2.4); Potassium 3.1 mmol/L (3.5-5.1); Sodium 138 mmol/L (136-145); Total Protein 6.1 gm/dl (6.0-8.3)
[2023-10-17 08:57] LABS: Anisocytosis Present; Basophils # (auto) 0.01 K/uL (0.00-0.20); Basophils % (auto) 0.1 %; Eosinophils # (auto) 0.01 K/uL (0.00-0.50); Eosinophils % (auto) 0.1 %; Hypochromasia Present; Immature Granulocytes # (auto) 0.07 K/uL (0.01-0.20); Immature Granulocytes % (auto) 0.7 %; Lymphocytes # (auto) 2.92 K/uL (1.20-3.40); Lymphocytes % (auto) 30.9 %; Monocytes # (auto) 1.41 K/uL (0.11-0.59); Monocytes % (auto) 14.9 %; Neutrophils # (auto) 5.02 K/uL (1.40-6.50); Neutrophils % (auto) 53.3 %; Pappenheimer Bodies 1+; Polychromasia 3+; Schistocytes 1+; Sickle Cells 1+; Target Cells 3+; Tear Drop Cells 1+
[2023-10-17] MEDS: ENOXAPARIN INJ 30 MG/0.3 ML SYR SQ SCH (10:00)
[2023-10-17] MEDS: FOLIC ACID 1 MG TAB PO SCH (10:00)
[2023-10-17 17:29] LABS: Hematocrit (blood only) 17.2 % (37.0-47.0); Hemoglobin 5.8 g/dl (12.0-16.0)
[2023-10-17] MEDS: REMDESIVIR 100 MG in SODIUM CHLORIDE 0.9% 230 ML IV SCH (21:00)
[2023-10-18 06:24] LABS: Hemoglobin 5.1 g/dl (12.0-16.0)
[2023-10-18 06:25] LABS: Mean Corpuscular Hemoglobin 21.7 pg (25.0-34.0); Mean Corpuscular Volume 63.8 fL (80.0-100.0); Nucleated RBC # (auto) 10.68 K/uL (0.00-0.12); Nucleated RBC % (auto) 128.1 %; Platelet Count 201 K/uL (130-400); RDW Coefficient of Variation 23.7 % (11.5-14.5); RDW Standard Deviation 50.7 fL (36.4-46.3); Red Blood Count 2.35 M/uL (4.20-5.40); White Blood Count 8.34 K/ul (4.8-10.8)
[2023-10-18 06:29] LABS: Alanine Aminotransferase 8 U/L (7-52); Alkaline Phosphatase 48 U/L (34-104); Blood Urea Nitrogen 7 mg/dl (6-23); Calcium 7.8 mg/dl (8.6-10.3); Creatinine Clr Calc Pharmacy 153.5 ml/min; Est GFR (African American) > 150.0 ml/min; Potassium 3.2 mmol/L (3.5-5.1); Sodium 139 mmol/L (136-145)
--- NOTE | 2023-10-18 06:41 | Hospitalist Progress Note ---
Date of Service October 18, 2023 Assessment & Plan (1) Sickle cell anemia: (2) Asplenia: (3) Anemia: (4) COVID-19: Plan Pt is a 18 yo female with a past med hx of sickle cell disease with chronic anemia and asplenia who presents for COVID-19 infection and fever in asplenic p t. Continue supportive care today pending blood cx 48 hr yanna. To get last dose of 3 day course remdesivir tonight. Plan for D/C tomorrow unless clinical status changes. Last hemoglobin check tonight. COVID-19 - Patient is febrile upon arrival, otherwise stable hemodynamics and respiratory status - saturating 98% on room air - Patient with no prior Covid-19 infections. -Per recommendation of [facility] Hematology, will initiate treatment with Remdesivir - can be used in patients at risk for developing severe disease, got 200 mg dose, then 100 mg last night and to get last 100 mg dose tonight for 3 day course -Tylenol as needed for pain or fever Sickle cell anemia - Patient with sickle cell anemia. She follows with [facility] in [place]. Reports that her baseline Hgb is around 6-6.5. No current complaints - no pain, no SOB at present. -Continue Folic Acid 1mg po daily -Continue Hydroxyurea - patient is on 1600mg po q 2 days -Continue PCN-V 250mg po BID - hemoglobin this morning 5.1 - called [facility] team this afternoon([phone]), hematology fellow recommended holding off on transfusion unless pt becomes symptomatic (tachycardia, recurrence of fever, chest pain, SOB) or perhaps below 5.0 but to call prior to transfusion so they are aware, will recheck H&H this evening Asplenia Noted. Patient reports that she is up to date with her recommended vaccinations. -Monitor closely for sepsis -Continue PCN-V 250mg po BID - blood cx pending; negative 24 hours Of note, patient did receive 1gm of Ceftriaxone at last night at 21:24. Patient has a confirmed Ceftriaxone allergy which resulted in facial swelling. Presently without symptoms. -Monitor closely for development of allergy symptoms, facial swelling, etc -Benadryl PRN. Nursing is to notify provider if Benadryl is needed so patient can be reassessed at bedside VTE ppx - Lovenox 30mg SQ daily for DVT prophylaxis in Covid-19 Admission and Anticipated Discharge Date Admission Date: October 16, 2023 Supervising Physician Co-Signing Physician Notes ATTESTATION I also saw the patient and confirmed rendon portions of the history and exam. I agree with the impression and plan in the resident documentation, and as summarized below. She feels generally well today; her biggest complaint is fatigue. She really has no respiratory symptoms; minimal congestion, no cough, no shortness of breath. She also denies any pain syndrome type symptoms. EXAM 99/64, 70, 20, 37 C, 97% room air She is pleasant. Alert. No distress appreciated. Heart regular rate and rhythm Lungs clear throughout with nonlabored respirations Abdomen soft and nontender DATA Labs Hemoglobin 5.1, platelet count 201. Potassium 3.2, BUN 7, creatinine 0.4 Total bilirubin 2.2. Imaging Chest x-ray completed upon admission shows no acute cardiopulmonary abnormality. Micro Blood cultures collected 10/16/2023 show no growth at 24 hours. IMPRESSION & PLAN Acute COVID-19 Asplenia Anemia Sickle cell Hypokalemia Consultation by phone with her application designer in [place]. Recommended transfusion threshold is 4.9; Repeat CBC this evening Third dose of remdesivir would be this evening. Oral repletion of potassium; recheck BMP in a.m. No signs or symptoms of sickle cell crisis. Potential discharge tomorrow Additional per resident documentation Subjective Today, pt states that she feels much better today, much less fatigued. She states that she slept well and her cold symptoms have been mild, mostly just congestion and dry cough. Overall feels great, feels like she just has a mild cold. No chest pain or SOB. No pain anywhere. No nausea or vomiting. No questions or complaints at this point. Review of Systems Review of Systems: Per HPI. Physical Exam Physical Exam: General:Alert and oriented, no acute distress, HEENT: Normocephalic, moist oral mucosa, Cardio: Regular rate and rhythm, no murmur, Resp:Lungs clear to auscultation b/l, no wheezes or rhonchi, Skin: Warm, pink, dry, Results & Data Results & Data Vital Signs (Past 12 Hours) Vital Signs Temp Pulse Pulse Resp BP Pulse Ox O2 Del Method 10/18/23 05:01 36.6 C 89 20 101/64 93 Room Air 10/18/23 04:06 37.2 C 10/18/23 00:28 37.4 C 10/17/23 23:49 37.8 C H 79 20 102/68 96 Room Air 10/17/23 21:34 84 10/17/23 20:15 Room Air 10/17/23 19:49 37.7 C H 81 20 102/68 94 Room Air Resident Activity Tracking Resident Involvement: Resident Care Provided Care Provided: Adult Hospital Medicine
[2023-10-18 08:34] LABS: Anisocytosis Present; Basophilic Stippling 1+; Basophils # (auto) 0.02 K/uL (0.00-0.20); Basophils % (auto) 0.2 %; Eosinophils # (auto) 0.13 K/uL (0.00-0.50); Eosinophils % (auto) 1.6 %; Howell-Jolly Bodies 1+; Immature Granulocytes # (auto) 0.04 K/uL (0.01-0.20); Immature Granulocytes % (auto) 0.5 %; Lymphocytes # (auto) 4.23 K/uL (1.20-3.40); Lymphocytes % (auto) 50.7 %; Monocytes # (auto) 0.91 K/uL (0.11-0.59); Monocytes % (auto) 10.9 %; Neutrophils # (auto) 3.01 K/uL (1.40-6.50); Neutrophils % (auto) 36.1 %; Polychromasia 1+; Sickle Cells 1+; Target Cells 2+; Tear Drop Cells 2+
[2023-10-18] MEDS: POTASSIUM CHLORIDE 20 MEQ/15 ML UDC PO STA (10:22)
[2023-10-18 11:48] LABS: Albumin Level 3.8 gm/dl (3.4-5.0); Anion Gap 9 (3-11); Bilirubin,Total 2.4 mg/dl (0.2-1.0); Carbon Dioxide 22 mmol/L (21-32); Chloride 108 mmol/L (98-107)
[2023-10-18 11:54] LABS: Albumin Globulin Ratio 1.7 (0.9-2); Aspartate Aminotransferase 41 U/L (13-39); BUN Creatinine Ratio 16.3 (10-20); Est GFR (Non-African American) 146.4 ml/min; Globulin 2.3 gm/dl (2.5-4.0); Glucose 78 mg/dl (70-99(Fasting)); Total Protein 6.1 gm/dl (6.0-8.3)
[2023-10-18 12:14] LABS: Magnesium 1.9 mg/dl (1.7-2.4)
[2023-10-18] MEDS: POTASSIUM CHLORIDE 20 MEQ/15 ML UDC PO ONE (14:08)
[2023-10-18 17:27] LABS: Hemoglobin 5.6 g/dl (12.0-16.0)
[2023-10-19 05:08] VITALS: TEMP 98.2
[2023-10-19 08:29] VITALS: BP 106/63; PULSE 88; RESP 18; O2SAT 97
[2023-10-19 08:36] LABS: Anion Gap 7 (3-11); BUN Creatinine Ratio 15.6 (10-20); Blood Urea Nitrogen 7 mg/dl (6-23); Calcium 8.5 mg/dl (8.6-10.3); Carbon Dioxide 23 mmol/L (21-32); Chloride 110 mmol/L (98-107); Creatinine Clr Calc Pharmacy 143.2 ml/min; Est GFR (African American) > 150.0 ml/min; Est GFR (Non-African American) 144.2 ml/min; Glucose 80 mg/dl (70-99(Fasting)); Potassium 4.3 mmol/L (3.5-5.1); Sodium 140 mmol/L (136-145)
[2023-10-19 08:38] LABS: Hematocrit (blood only) 16.5 % (37.0-47.0); Hemoglobin 5.4 g/dl (12.0-16.0)
--- NOTE | 2023-10-19 10:38 | Discharge Summary ---
Date of Service October 19, 2023 Admission HPI Per Admitting Provider Deangelo Galo is a 18yo female with sickle cell disease, asplenia presenting with Covid-19 and fever. Patient reports developing a fever yesterday AM 10/15/23 with Tmax of 104 as well as generalized weakness, cough productive for scant sputum. Patient has never had Covid-19 before and has not received any Covid-19 vaccinations. Patient with sickle cell anemia. She follows with [facility]. She is compliant with her home medications - Folic Acid, Hydroxyurea and PCN V. She reports that her baseline Hgb is 6-6.5. At present she reports no evidence of sickle cell crisis. Denies pain, chest discomfort or shortness of breath. In the ER patient febrile to Tm=39.5, hemodynamically stable. No respiratory distress. Adequate oxygenation on room air - presently 98% Case was discussed between [facility] Hematology and ER attending ER Course: Ceftriaxone 1gm IV Tylenol 1gm Toradol 15mg IV NSS x 1L Admission Exam Per Admitting Provider General: patient resting comfortably, NAD, non-toxic in appearance, AA&O x 4 Skin: warm, dry, intact, no rashes or lesions HEENT: NC/AT, PERRL, EOMI, anicteric sclera, conjunctiva without injection, external ear normal to inspection and nontender, nares patent, moist mucus membranes, dentition intact, no oropharyngeal lesions, neck supple, trachea midline, no LAD, no thyromegaly, no JVD Heart: +S1/S2, regular, no m/r/g Lungs: equal air entry bilaterally, no rales/rhonchi/wheezes Abd: +BS, soft, NT/ND, no masses/organomegaly/ascites Ext: warm, 2+ pulses in UE/LE bilaterally, no clubbing/cyanosis or edema Neuro: nonfocal, patient AA&O x 4, speech intact, no facial droop, moving all extremities on command with equal strength 5/5 Principal Diagnosis COVID-19 infection in the setting of asplenic sickle cell patient Discharge Exam General:Alert and oriented, no acute distress, HEENT: Normocephalic, moist oral mucosa, Cardio: Regular rate and rhythm, no murmur, Resp:Lungs clear to auscultation b/l, no wheezes or rhonchi, Skin: Warm, pink, dry, Discharge Data Allergies Allergy/AdvReac Type Severity Reaction Status Date / Time ceftriaxone Allergy FACIAL Verified 10/16/23 22:03 SWELLING fentanyl Allergy Itching Verified 10/16/23 21:59 hydromorphone Allergy Itching Verified 10/16/23 22:01 morphine Allergy Itching Verified 10/16/23 21:58 oxycodone Allergy Itching Verified 10/16/23 22:00 Consultations 10/16/23 22:02 ED Decision to Admit Stat Hospital Course (1) Sickle cell anemia: (2) Asplenia: (3) Anemia: (4) COVID-19: Plan Pt is a 18 yo female with a past med hx of sickle cell disease with chronic anemia and asplenia who presents for COVID-19 infection and fever in asplenic pt. COVID-19 infection - Patient is febrile upon arrival, otherwise stable hemodynamics and respiratory status - saturating 98% on room air - Patient with no prior Covid-19 infections. - Per recommendation of [facility] Hematology, treated with Remdesivir; got 200 mg dose, then 100 mg, then 100 mg dose last night for 3 day course completed 10/17 - symptoms have been very mild, congestion mostly, fatigue and dry cough have improved day by day Sickle cell anemia - Patient with sickle cell anemia. She follows with [facility] in [place]. Reports that her baseline Hgb is around 6-6.5. No current complaints - no pain, no SOB at present. - hemoglobin this morning 5.4, she is asymptomatic, feeling well, vitals table - called [facility] team last night ([phone]), hematology fellow recommended holding off on transfusion unless pt becomes symptomatic or below 5.0, so no transfusions done this hospital stay as she did not meet this criteria Asplenia Noted. Patient reports that she is up to date with her recommended vaccinations. - blood cx; negative 48 hours Total Time Total Time Spent Total Time Spent (In Minutes): 38 Total Time Includes: Examination of the Patient, Discharge Planning and Medication Reconciliation Discharge Plan Discharge Items Patient Disposition: Home - Self-Care Reason For Visit: COVID +, ANEMIA Discharge Diagnosis: COVID-19 infection in the setting of asplenic sickle cell patient Activity: Resume your previous activity Non-emergency contact: Primary Care Provider Call non-emergency contact if: you have any medication questions, your symptoms worsen and your temperature is above 101.5 Follow-up/Referrals: PCP,NO [Primary Care Provider] - Diet: Regular Addtl Attending Provider Instructions: You were admitted to the hospital for COVID-19 infection in the setting of someone without a spleen and with sickle cell disease. Because you do not have a spleen that can help filter the blood and clear out bacteria to help clear infections, we worry about more severe infections with any illness. For this reason, even though you were positive for COVID-19, we also did a blood culture to look for other sources of infection. Thankfully, your blood culture has been negative and your symptoms are most consistent with COVID-19 infection and has luckily been mild as well. As you also have had stable vitals and no pain to indicate a sickle cell crisis, we feel it is safe for you to return home. We spoke to your hematology team at [facility] last night who felt this plan was appropriate as well. We did treat you with three doses of an antiviral to help reduce your risk of getting very sick from COVID as well. You should plan to call your primary care provider today to make an appointment for early next week. You should also plan to call your [facility] team to let them know you have been in the hospital. You may notice lingering dry cough this week and into next week and maybe even the week after. The important thing is that you should not get worse. If you feel as though you are getting worse and have symptoms such as chest pain, shortness of breath, feeling faint, sickle cell pain similar to you as your other crises, heart palpitations, or any other symptoms that are concerning to you, please return to the hospital. Otherwise, you may use over the counter cough and cold medicines for your cold symptoms. Pending Studies at Discharge: No Stand-Alone Forms: My [facility] Medications and DC Order Prescriptions: Continued Droxia 400 mg capsule 1,600 mg PO Q2D Rx Instructions: 10/16/23 PT REPORTS SHE TAKES THIS MED DAILY penicillin V potassium 250 mg Tablet 250 mg PO BID Rx Instructions: 10/16/23 [facility] folic acid 1 mg Tablet 1 mg PO DAILY Discharge Orders: Discharge Order (Routine); Ordered 10/19/23 Ordered By: Adriana Cooper/Other Patient Handouts: COVID-19 Home Care, COVID19 Home Disinfect, V- How COVID-19 Spreads, COVID-19 Home Care Admission Data Admit Date/Time: 10/16/23 21:31 Attending Provider: Joyce Kern Admit Provider: Africa Ordaz Primary Care Provider: PCP,NO Other Providers: Africa Ordaz Other Interventions: Discharge Summary Assessment (RN) Last Done: 10/19/23 12:49 Supervising Physician Co-Signing Physician Notes I personally examined the patient and verified rendon points of history and exam, discussed case, and agree with decision making and plan documented by Dr. Mcconnell. Patient With history of sickle cell anemia diagnosed with COVID-19, status post 3 days of remdesivir treatment. Patient denies complaints, vital signs are stable, hemoglobin remains near baseline without need of transfusion per team at [facility]. Patient appears comfortable, lungs clear b/l to auscultation, regular rate and rhythm, no acute distress. Patient will follow-up with her PCP upon return to [place]. Safety netted with patient at length in terms of reasons to come back to hospital for evaluation. Resident Activity Tracking Resident Involvement: Resident Care Provided Care Provided: Adult Hospital Medicine
== END 2023-10-19 14:02 | disposition home or self-care (01) | DRG 179 ==
LOC: ED 17:34 → SUATTDRO 21:31 → 2N 21:31

== ENCOUNTER 2025-02-03 12:57 | Inpatient (IN) ==
--- NOTE | 2025-02-03 13:12 | Emergency Department Note ---
Impression & Plan Influenza A, Sickle cell anemia ED Provider Note CHIEF COMPLAINT: Flulike symptoms HISTORY OF PRESENTING ILLNESS: Patient is a pleasant, 20-year-old female who arrives to the emergency department for evaluation of bodyaches, and fever with cough. Patient has past medical history of sickle cell. She reports no chest pain, abdominal pain, or shortness of breath. Patient states no nausea, vomiting, dysuria, or diarrhea. She reports slight headache at this time. Patient states symptoms began yesterday, and have worsened. REVIEW OF SYSTEMS: See HPI for pertinent positives and pertinent negatives. ALLERGIES: See below MEDICATIONS: See below PAST MEDICAL HISTORY: See below PHYSICAL EXAM: VITALS: Vitals are noted on the nurse's note and reviewed by myself. Tachycardia, febrile. GENERAL: 20-year-old female, in no acute distress, nondiaphoretic, well- developed well-nourished. SKIN: The skin was without rashes, erythema, edema, or bruising. HEAD: Normocephalic atraumatic. MOUTH: Mucous membranes moist. Tonsils are not enlarged. Pharynx without erythema or exudate. Uvula midline. Airway patent. Tongue does not deviate. NECK: Supple without nuchal rigidity. No lymphadenopathy. Cervical spine is nontender. No JVD. HEART: Tachycardia with regular hythm without murmurs gallops or rubs. LUNGS: Clear to auscultation bilaterally without wheezes, rales or rhonchi. No retractions or accessory muscle use. ABDOMEN: Positive bowel sounds x 4. Soft, nontender, without masses or organomegaly. Dai sign negative. No guarding or rebound tenderness. MUSCULOSKELETAL: No muscle atrophy, erythema, or edema noted. Normal gait. Strength 5/5 throughout. NEURO: Patient was alert and oriented to person place and time. No focal neurological deficits. DIFFERENTIAL DIAGNOSIS: Viral syndrome, otitis, pharyngitis, pneumonia, influenza, meningitis, urinary tract infection, sepsis, bacteremia, as well as other pathologies. ED COURSE AND MEDICAL DECISION MAKING: MEDICATIONS GIVEN: 2 L NSS bolus, 1000 mg p.o. acetaminophen, 15 mg IV Toradol MONITOR: Continuous silver buffer: Order was placed for continuous silver buffer. Patient was placed on the silver buffer and continuous pulse ox. Patient was noted to be in normal sinus rhythm at an initial rate of 136 bpm per my interpretation. INTERPRETATION OF LABS: I interpreted the labs with full lab results as below in the lab section of this note. Pertinent lab results discussed in the MDM section below. INTERPRETATION OF IMAGING: Imaging studies were interpreted by myself and read by radiology as per the imaging section of this note. CHRONIC MEDICAL/SOCIAL CONDITIONS AFFECTING CARE: Sickle cell anemia MDM SUMMARY: The patient is a pleasant, 20-year-old female who arrives to the emergency department for evaluation of the above-stated complaint. Saline lock was established, lab work was obtained. CBC shows leukocytosis 15.58, stable chronic anemia. Platelet count 458. CMP shows sodium 133, total bilirubin 2.9, no other concerning findings. Upper respiratory viral panel positive for influenza A. Chest x-ray imaging per my interpretation shows minimal left basilar opacities which may represent atelectasis, or mild pneumonitis. 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 Patient was hydrated with 2.5 L of IV fluids, and provided fever and pain control with oral acetaminophen, and IV Toradol. Throughout the course of the stay, the patient's heart rate and temperature decreased. The patient did at one point endorse some abdominal pain, however does not feel this is consistent with sickle cell crisis. I spoke with the patient regarding the positive influenza A. We discussed [facility] protocol for this patient specifically, and the fact that when she has a febrile status, that she requires blood cultures, and admission for hydration and management. I was agreeable to admitting the patient to the hospitalist services. Blood cultures were ordered, as well as a reticulocyte count. The patient was admitted at that time to the [facility] hospitalist group, Dr. Restrepo, who agreed to evaluate and accept the patient under his care. Please refer to his documentation, for further patient workup and care. DIAGNOSIS: Influenza A, sickle cell anemia The chart was completed utilizing [employer] Speech voice recognition software. Grammatical errors, random word insertions, pronoun errors, and incomplete sentences are an occasional consequence of this system due to software limitations, ambient noise, and hardware issues. Any formal questions or concerns about the content, text, or information contained within the body of this dictation should be directly addressed to the provider for clarification. Past Med/Surg History Problem List (Updated 02/03/25 @ 21:41 by ELDA Stone) Influenza A (Acute) Sickle cell anemia (Acute) Asplenia (Acute) Anemia (Acute) COVID-19 (Acute) Medical History Asplenia Sickle cell anemia Surgical History History of splenectomy Family History Other No significant family history Social History Smoking Status: Never smoker Second Hand Exposure: No; Do You Dip or Chew Tobacco: No; Hx Alcohol Use: Yes (socially) Hx Substance Use: No Preferred Language: Kazakh Communication Ability: Effective Account Group Supervisor Required: No Beliefs That Will Affect Care: None Current Living Situation: Family Feels Safe at Home: Yes Assistive Devices: None Allergies Allergies Allergy/AdvReac Type Severity Reaction Status Date / Time ceftriaxone Allergy FACIAL Verified 10/16/23 22:03 SWELLING fentanyl Allergy Itching Verified 10/16/23 21:59 hydromorphone Allergy Itching Verified 10/16/23 22:01 morphine Allergy Itching Verified 10/16/23 21:58 oxycodone Allergy Itching Verified 10/16/23 22:00 Home Meds Home Medications Medication Instructions Recorded Confirmed folic acid 1 mg tablet 1 mg PO DAILY 10/16/23 10/21/23 hydroxyurea (sickle cell) 400 mg 1,600 mg PO Q2D 10/16/23 10/21/23 capsule (Droxia) penicillin V potassium 250 mg 250 mg PO BID 10/16/23 10/21/23 tablet naproxen 375 mg tablet 375 mg PO BID 10/21/23 10/21/23 sertraline 100 mg tablet 100 mg PO DAILY 02/03/25 02/03/25 Results & Data (ED) Vital Signs Vital Signs - 24 hr 02/03/25 13:02 02/03/25 13:35 02/03/25 14:00 Temperature 38.6 C H Temperature Source Oral Pulse Rate 136 H 130 H 124 H Pulse Rate [Right Finger] Pulse Rate from SpO2 Sensor 127 H Pulse Rhythm [Right Finger] Pulse Strength [Right Finger] Respiratory Rate 20 24 Respiratory Effort / Characteristics Non-Labored Spontaneous Respiratory Depth Normal Respiratory Pattern Blood Pressure 109/71 111/67 Blood Pressure [Right Arm] Blood Pressure Mean 83 81 Blood Pressure Mean [Right Arm] Blood Pressure Position [Right Arm] Pulse Oximetry 92 97 Oxygen Delivery Method Room Air Room Air Sepsis Recent Fever Within 48 Hours Yes Sepsis New/Unexplained Change in Mental Status No Sepsis Action Taken by Nursing Physician Notified 02/03/25 14:30 02/03/25 15:00 02/03/25 15:30 Temperature Temperature Source Pulse Rate 120 H 112 H 113 H Pulse Rate [Right Finger] Pulse Rate from SpO2 Sensor 120 H 113 H Pulse Rhythm [Right Finger] Pulse Strength [Right Finger] Respiratory Rate 23 23 25 H Respiratory Effort / Characteristics Respiratory Depth Respiratory Pattern Blood Pressure 98/78 L 89/54 L 103/54 L Blood Pressure [Right Arm] Blood Pressure Mean 84 65 70 Blood Pressure Mean [Right Arm] Blood Pressure Position [Right Arm] Pulse Oximetry 95 93 93 Oxygen Delivery Method Room Air Room Air Room Air Sepsis Recent Fever Within 48 Hours Sepsis New/Unexplained Change in Mental Status Sepsis Action Taken by Nursing 02/03/25 15:41 02/03/25 15:41 02/03/25 16:00 Temperature 37.3 C Temperature Source Oral Pulse Rate 115 H Pulse Rate [Right Finger] 112 H Pulse Rate from SpO2 Sensor 115 H Pulse Rhythm [Right Finger] Regular Pulse Strength [Right Finger] Normal Respiratory Rate 26 H 23 Respiratory Effort / Characteristics Non-Labored Respiratory Depth Normal Respiratory Pattern Regular Blood Pressure 100/67 Blood Pressure [Right Arm] 103/54 L Blood Pressure Mean 78 Blood Pressure Mean [Right Arm] 70 Blood Pressure Position [Right Arm] Lying Pulse Oximetry 94 94 Oxygen Delivery Method Room Air Room Air Sepsis Recent Fever Within 48 Hours Sepsis New/Unexplained Change in Mental Status Sepsis Action Taken by Nursing 02/03/25 16:30 02/03/25 17:00 02/03/25 17:41 Temperature Temperature Source Pulse Rate 110 H 105 H 101 H Pulse Rate [Right Finger] Pulse Rate from SpO2 Sensor 105 H Pulse Rhythm [Right Finger] Pulse Strength [Right Finger] Respiratory Rate 20 23 Respiratory Effort / Characteristics Respiratory Depth Respiratory Pattern Blood Pressure 109/60 99/59 L Blood Pressure [Right Arm] Blood Pressure Mean 76 72 Blood Pressure Mean [Right Arm] Blood Pressure Position [Right Arm] Pulse Oximetry 93 95 Oxygen Delivery Method Room Air Room Air Sepsis Recent Fever Within 48 Hours Sepsis New/Unexplained Change in Mental Status Sepsis Action Taken by Nursing 02/03/25 18:30 02/03/25 19:00 02/03/25 20:00 Temperature 39.0 C H Temperature Source Pulse Rate 110 H 97 H 113 H Pulse Rate [Right Finger] Pulse Rate from SpO2 Sensor 110 H Pulse Rhythm [Right Finger] Pulse Strength [Right Finger] Respiratory Rate 17 24 24 Respiratory Effort / Characteristics Respiratory Depth Respiratory Pattern Blood Pressure 109/62 129/82 129/72 Blood Pressure [Right Arm] Blood Pressure Mean 77 97 91 Blood Pressure Mean [Right Arm] Blood Pressure Position [Right Arm] Pulse Oximetry 93 94 98 Oxygen Delivery Method Room Air Sepsis Recent Fever Within 48 Hours Sepsis New/Unexplained Change in Mental Status Sepsis Action Taken by Detention Medications Current Medication List: was personally reviewed by me Laboratory Data Attestation: I reviewed the patient's lab results. 02/03/25 13:36 02/03/25 13:36 Lab Results 02/03/25 02/03/25 02/03/25 Range/Units 13:36 14:22 17:15 WBC 15.58 H (4.8-10.8) K/ul RBC 3.10 L (4.20-5.40) M/uL Hgb 6.6 L* (12.0-16.0) g/dL Hct 20.6 L* (37.0-47.0) % MCV 66.5 L (80.0-100.0) fL MCH 21.3 L (25.0-34.0) pg MCHC 32.0 (32.0-36.0) g/dL RDW Std Deviation 50.2 H (36.4-46.3) fL RDW Coeff of Kaelyn 23.5 H (11.5-14.5) % Plt Count 458 H (130-400) K/uL MPV 10.3 (9.4-12.4) fL Immature Gran % (Auto) 1.5 % Neut % (Auto) 78.3 % Lymph % (Auto) 5.4 % [place] % (Auto) 14.4 % Eos % (Auto) 0.1 % Baso % (Auto) 0.3 % Reticulocyte % (Auto) 8.63 H (0.50-2.00) % Neut # (Auto) 12.20 H (1.40-6.50) K/uL Lymph # (Auto) 0.84 L (1.20-3.40) K/uL [place] # (Auto) 2.25 H (0.11-0.59) K/uL Eos # (Auto) 0.02 (0.00-0.50) K/uL Baso # (Auto) 0.04 (0.00-0.20) K/uL Reticulocyte # 0.240 H (0.020-0.100) 10^6/uL Immature Gran # (Auto) 0.23 H (0.01-0.20) K/uL Absolute Nucleated RBC 11.27 H (0.00-0.12) K/uL Nucleated RBC % (auto) 72.3 % Polychromasia 3+ Basophilic Stippling 1+ Anisocytosis Present Pappenheimer Bodies 1+ Sickle Cells 1+ Target Cells 3+ Sodium 133 L (136-145) mmol/L Potassium 3.5 (3.5-5.1) mmol/L Chloride 102 (98-107) mmol/L Carbon Dioxide 23 (21-32) mmol/L Anion Gap 8 (3-11) BUN 6 (6-23) mg/dl Creatinine 0.62 (0.6-1.2) mg/dl Est Cr Clr Drug Dosing Not Reportable eGFR 129.05 BUN/Creatinine Ratio 9.7 L (10-20) Glucose 92 (70-99(Fasting)) mg/dl Calcium 8.9 (8.6-10.3) mg/dl Total Bilirubin 2.9 H (0.2-1.0) mg/dl AST 20 (13-39) U/L ALT 12 (7-52) U/L Alkaline Phosphatase 63 (34-104) U/L Total Protein 7.5 (6.0-8.3) gm/dl Albumin 4.3 (3.4-5.0) gm/dl Globulin 3.2 (2.5-4.0) gm/dl Albumin/Globulin Ratio 1.3 (0.9-2) Adenovirus (PCR) Not Detected (NotDetected) B. pertussis DNA (PCR) Not Detected (NotDetected) B.parapertussis DNA PCR Not Detected (NotDetected) C. pneumoniae DNA (PCR) Not Detected (NotDetected) Coronavirus OC43 (PCR) Not Detected (NotDetected) Coronavirus HKU1 (PCR) Not Detected (NotDetected) Coronavirus 229E (PCR) Not Detected (NotDetected) SARS-CoV-2 (PCR) Not Detected (NotDetected) Coronavirus NL63 (PCR) Not Detected (NotDetected) Human Metapneumovir PCR Not Detected (NotDetected) Influenza A (H3) PCR DETECTED A (NotDetected) Influenza Type B (PCR) Not Detected (NotDetected) M. pneumoniae (PCR) Not Detected (NotDetected) Parainfluenza 1 (PCR) Not Detected (NotDetected) Parainfluenza 2 (PCR) Not Detected (NotDetected) Parainfluenza 3 (PCR) Not Detected (NotDetected) Parainfluenza 4 (PCR) Not Detected (NotDetected) RSV (PCR) Not Detected (NotDetected) Entero/Rhino (PCR) Not Detected (NotDetected) Administered Medications Discontinued Medications Acetaminophen (Acetaminophen 500 Mg Tab) 1,000 mg PO ONE STA Stop: 02/03/25 13:13 Last Admin: 02/03/25 13:23 Dose: 1,000 mg Documented By: VIRGINIA Acetaminophen (Acetaminophen 500 Mg Tab) 1,000 mg PO NOW STA Stop: 02/03/25 19:45 Last Admin: 02/03/25 19:53 Dose: 1,000 mg Documented By: PADMINI Sodium Chloride (Nss) 1,000 mls @ 999 mls/hr IV .Q1H1M TALYA Stop: 02/03/25 15:15 Last Admin: 02/03/25 15:41 Dose: Not Given Documented By: Infusion: 02/03/25 15:41 Dose: Infused Documented By: Admin: 02/03/25 13:34 Dose: 999 mls/hr Documented By: VIRGINIA Sodium Chloride (Nss) 1,000 mls @ 999 mls/hr IV .Q1H1M ONE Stop: 02/03/25 16:11 Last Infusion: 02/03/25 17:40 Dose: Infused Documented By: Admin: 02/03/25 15:41 Dose: 999 mls/hr Documented By: DENNISE Sodium Chloride (Nss) 500 mls @ 999 mls/hr IV .Q31M ONE Stop: 02/03/25 16:57 Last Infusion: 02/03/25 17:40 Dose: Infused Documented By: Admin: 02/03/25 16:37 Dose: 999 mls/hr Documented By: VIRGINIA Ketorolac Tromethamine (Ketorolac Tromethamine 15 Mg/Ml Vial) 15 mg IV NOW ONE Stop: 02/03/25 13:27 Last Admin: 02/03/25 14:06 Dose: 15 mg Documented By: VIRGINIA Imaging Data Attestation: I personally reviewed and interpreted this imaging study as follows: Radiologist's Impression: Chest X-Ray 02/03/25 13:12 SINGLE VIEW CHEST CLINICAL HISTORY: Fever FINDINGS: An AP, portable, upright chest radiograph is compared to study dated 10/21/2023. The cardiomediastinal silhouette is unremarkable. There are minimal left basilar opacities. No pleural effusion or pneumothorax is seen. 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 The bony thorax is grossly intact. IMPRESSION: 1. There are minimal left basilar opacities which may represent atelectasis. Correlate clinically for evidence of a mild pneumonitis. 2. 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 ACT 112: Negative or not required by law. Electronically signed by: Ja Metzger M.D. 02/03/2025 1:55 PM Discharge Plan Visit Data Chief Complaint: Flu Like Symptoms Stated Complaint: FEVER, RESPIRATORY, SICKLE CELL DISEASE, COUGH ED Provider: Patel Chanel ED Midlevel Provider: Teressa David Discharge Problem: Influenza A, Sickle cell anemia Patient Disposition: Admitted As Inpatient
[2025-02-03] MEDS: ACETAMINOPHEN 500 MG TAB PO STA ×2 (13:23→19:53)
[2025-02-03] MEDS: SODIUM CHLORIDE 0.9% 1,000 ML IV SCH ×2 (13:34→21:21)
--- NOTE | 2025-02-03 13:56 | XRay Report ---
SINGLE VIEW CHEST CLINICAL HISTORY: Fever FINDINGS: An AP, portable, upright chest radiograph is compared to study dated 10/21/2023. The cardiome diastinal silhouette is unremarkable. There are minimal left basilar opacities. No pleural effusion o r pneumothorax is seen. 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 The bony thorax is grossl y intact. IMPRESSION: 1. There are minimal left basilar opacities which may represent atelectasis. Correlate clinically for evidence of a mild pneumonitis. 2. 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 ACT 112: Negative or not required by law. Electronically signed by: Ja Metzger M.D. 02/03/2025 1:55 PM
[2025-02-03] MEDS: KETOROLAC TROMETHAMINE 15 MG/ML VIAL IV ONE (14:06)
[2025-02-03 14:14] LABS: Hematocrit (blood only) 20.6 % (37.0-47.0); Hemoglobin 6.6 g/dL (12.0-16.0); Mean Corpuscular Hemoglobin 21.3 pg (25.0-34.0); Mean Corpuscular Volume 66.5 fL (80.0-100.0); Platelet Count 458 K/uL (130-400); RDW Standard Deviation 50.2 fL (36.4-46.3); Red Blood Count 3.10 M/uL (4.20-5.40); White Blood Count 15.58 K/ul (4.8-10.8)
[2025-02-03 14:22] LABS: Anisocytosis Present; Basophilic Stippling 1+; Immature Granulocytes # (auto) 0.23 K/uL (0.01-0.20); Immature Granulocytes % (auto) 1.5 %; Polychromasia 3+; Sickle Cells 1+; Target Cells 3+
[2025-02-03 14:25] LABS: Alanine Aminotransferase 12 U/L (7-52); Albumin Globulin Ratio 1.3 (0.9-2); Albumin Level 4.3 gm/dl (3.4-5.0); Alkaline Phosphatase 63 U/L (34-104); Anion Gap 8 (3-11); Bilirubin,Total 2.9 mg/dl (0.2-1.0); Blood Urea Nitrogen 6 mg/dl (6-23); Calcium 8.9 mg/dl (8.6-10.3); Carbon Dioxide 23 mmol/L (21-32); Chloride 102 mmol/L (98-107); Globulin 3.2 gm/dl (2.5-4.0); Glucose 92 mg/dl (70-99(Fasting)); Potassium 3.5 mmol/L (3.5-5.1); Sodium 133 mmol/L (136-145); Total Protein 7.5 gm/dl (6.0-8.3)
[2025-02-03 15:24] LABS: Chlamydia pneumoniae PCR Not Detected (NotDetected); Coronavirus 229E PCR Not Detected (NotDetected); Coronavirus CoV-2 (COVID19)PCR Not Detected (NotDetected); Coronavirus HKU1 PCR Not Detected (NotDetected); Coronavirus NL63 PCR Not Detected (NotDetected); Coronavirus OC43PCR Not Detected (NotDetected); Human Metapneumovirus PCR Not Detected (NotDetected); Influenza A (H3) PCR DETECTED (NotDetected); Parainfluenza Virus 1 PCR Not Detected (NotDetected); Parainfluenza Virus 2 PCR Not Detected (NotDetected); Parainfluenza Virus 3 PCR Not Detected (NotDetected); Parainfluenza Virus 4 PCR Not Detected (NotDetected); Respiratory Syncytial VirusPCR Not Detected (NotDetected); Rhinovirus/Enterovirus PCR Not Detected (NotDetected)
[2025-02-03] MEDS: SODIUM CHLORIDE 0.9% 1,000 ML IV ONE (15:41)
[2025-02-03] MEDS: SODIUM CHLORIDE 0.9% 500 ML IV ONE (16:37)
[2025-02-03 17:44] LABS: Reticulocytes # 0.240 10^6/uL (0.020-0.100)
--- NOTE | 2025-02-03 18:03 | History & Physical Report ---
Date of Service February 03, 2025 Assessment & Plan (1) Sickle cell anemia: (2) Asplenia: (3) Anemia: (4) Influenza A: Plan Patient with PMH of SCD and asplenia, presented into the hospital for flu-like symptoms that began last night. Came into the ER stating she was feeling feverish, chills, body aches, and congestion in her chest. ED course got a blood culture and reticulocyte count per protocol. Was given 2.5L of NS, Tylenol 1,000mg, and Toradol 15mg IV. CXR was also done showing minimal left basilar opacities which may represent atelectasis and avascular necrosis of the humeral heads. Patient tested positive for Influenza A. While at bedside in the ER, the patient was experiencing severe stomach cramps that she did not experience before arriving to the hospital. States the pain is throughout her abdomen. Currently denies that current pain is sickle cell pain. CBC showed WBC: 15.58, Hgb: 6.6, Hct:20.6, and Plt: 458. #Flu/SCD - Was positive for Influenza A. WBC is 15.58 (02/03/25). - H&H is 6.6 and 20.6 but seem to be at baseline. Platelets were slightly elevated at 458. - Start to transfuse when Hgb is <5.0 - Reticulocyte count is 0.240 which is at baseline. - Due to hx of SCD will manage symptoms with fluids and pain control. - IVF: 100ml of NS - Tylenol 1000mg Q8H scheduled. Toradol for mild pain. Morphine 2mg and 4mg for breakthrough pain. - Due to having itchiness for morphine, ordered Benadryl PRN - Zofran PRN - Tamiflu 75mg BID for positive flu - Follow blood cultures and reticulocyte count. - Continue to monitor for symptoms of sickle cell crisis. - Went to try to get blood transfusion consent but patient denied to sign at this time. Would like to wait to sign until symptoms of a sickle cell crisis arise. Patient stated that at [facility] they wouldn't want to give blood until her Hgb was less than 5.0. - CBC w/diff and CMP AM labs #Asplenia - Continue penicillin V potassium 250mg History of Present Illness Chief Complaint: Flu-Like Symptoms Primary Care Provider: ELDA Sim Patient with PMH of sickle cell disease, presents into the hospital with flu- like symptoms that begin 10pm last night (02/03). States that she felt feverish (but did not take a formal temperature), chills, congestion in her chest, and body aches. Reports that she wasnt having stomach pain before coming to the hospital, but now is experiencing stomach cramps while on bedside. Patient said that she had sickle cell pain before and the current pain does not feel that way. Shortly after exam had to go to the bathroom and reports she had watery stool and felt better after voiding. Denies any blood in the stool. Went to try to get blood transfusion consent but patient denied to sign at this time. Would like to wait to sign until symptoms of a sickle cell crisis arise. Denies N/V, chest pain, and shortness of breath. Allergies Allergy/AdvReac Type Severity Reaction Status Date / Time ceftriaxone Allergy FACIAL Verified 10/16/23 22:03 SWELLING fentanyl Allergy Itching Verified 10/16/23 21:59 hydromorphone Allergy Itching Verified 10/16/23 22:01 morphine Allergy Itching Verified 10/16/23 21:58 oxycodone Allergy Itching Verified 10/16/23 22:00 Home Medications Medication Instructions Recorded Confirmed Type folic acid 1 mg tablet 1 mg PO DAILY 10/16/23 10/21/23 History hydroxyurea (sickle cell) 400 mg 1,600 mg PO Q2D 10/16/23 10/21/23 History capsule (Droxia) penicillin V potassium 250 mg 250 mg PO BID 10/16/23 10/21/23 History tablet naproxen 375 mg tablet 375 mg PO BID 10/21/23 10/21/23 History sertraline 100 mg tablet 100 mg PO DAILY 02/03/25 02/03/25 History Past Med/Surg History Problem List (Updated 02/03/25 @ 21:41 by ELDA Stone) Influenza A (Acute) Sickle cell anemia (Acute) Asplenia (Acute) Anemia (Acute) COVID-19 (Acute) Medical History Asplenia Sickle cell anemia Surgical History History of splenectomy Family History Other No significant family history Social History Smoking Status: Unknown if ever smoked Second Hand Exposure: No; Do You Dip or Chew Tobacco: No; Hx Alcohol Use: No Hx Substance Use: No Preferred Language: [place] Communication Ability: Effective Human Resources Administrator Required: No Beliefs That Will Affect Care: None Current Living Situation: Family Feels Safe at Home: Yes Assistive Devices: None Review of Systems Review of Systems: as per HPI Physical Exam Constitutional: + acute distress Eyes: + anicteric sclerae and EOM intact bilat erally Respiratory: normal respiratory effort, lungs clear to auscultation Cardiovascular: Rate/Rhythm: regular rhythm and + tachycardic Heart Sounds: normal S1 and normal S2; no murmur Gastrointestinal (Abdomen): Percussion/Palpation: + abdomen tender (throughout but worse in LLQ) and abdomen soft Skin: no rashes, warm and dry Psychiatric: Eye Contact: good eye contact Speech: normal rate/rhythm/volume of speech Thought Process: goal directed thought process and linear/logical thought process Insight: good insight Results & Data Results & Data Vital Signs (Past 12 Hours) Vital Signs Temp Pulse Pulse Resp BP BP Pulse Ox 02/03/25 17:41 101 H 02/03/25 15:41 112 H 26 H 103/54 L 94 02/03/25 15:41 37.3 C 02/03/25 15:30 113 H 25 H 103/54 L 93 02/03/25 15:00 112 H 23 89/54 L 93 02/03/25 14:30 120 H 23 98/78 L 95 02/03/25 14:00 124 H 24 111/67 97 02/03/25 13:35 130 H 02/03/25 13:02 38.6 C H 136 H 20 109/71 92 O2 Del Method 02/03/25 17:41 02/03/25 15:41 Room Air 02/03/25 15:41 02/03/25 15:30 Room Air 02/03/25 15:00 Room Air 02/03/25 14:30 Room Air 02/03/25 14:00 Room Air 02/03/25 13:35 02/03/25 13:02 Room Air Laboratory Results 02/03/25 02/03/25 02/03/25 Range/Units 17:15 14:22 13:36 WBC 15.58 H (4.8-10.8) K/ul RBC 3.10 L (4.20-5.40) M/uL Hgb 6.6 L* (12.0-16.0) g/dL Hct 20.6 L* (37.0-47.0) % MCV 66.5 L (80.0-100.0) fL MCH 21.3 L (25.0-34.0) pg MCHC 32.0 (32.0-36.0) g/dL RDW Std Deviation 50.2 H (36.4-46.3) fL RDW Coeff of Kaelyn 23.5 H (11.5-14.5) % Plt Count 458 H (130-400) K/uL MPV 10.3 (9.4-12.4) fL Immature Gran % (Auto) 1.5 % Neut % (Auto) 78.3 % Lymph % (Auto) 5.4 % Carver % (Auto) 14.4 % Eos % (Auto) 0.1 % Baso % (Auto) 0.3 % Reticulocyte % (Auto) 8.63 H (0.50-2.00) % Neut # (Auto) 12.20 H (1.40-6.50) K/uL Lymph # (Auto) 0.84 L (1.20-3.40) K/uL Carver # (Auto) 2.25 H (0.11-0.59) K/uL Eos # (Auto) 0.02 (0.00-0.50) K/uL Baso # (Auto) 0.04 (0.00-0.20) K/uL Reticulocyte # 0.240 H (0.020-0.100) 10^6/uL Immature Gran # (Auto) 0.23 H (0.01-0.20) K/uL Absolute Nucleated RBC 11.27 H (0.00-0.12) K/uL Nucleated RBC % (auto) 72.3 % Polychromasia 3+ Basophilic Stippling 1+ Anisocytosis Present Pappenheimer Bodies 1+ Sickle Cells 1+ Target Cells 3+ Sodium 133 L (136-145) mmol/L Potassium 3.5 (3.5-5.1) mmol/L Chloride 102 (98-107) mmol/L Carbon Dioxide 23 (21-32) mmol/L Anion Gap 8 (3-11) BUN 6 (6-23) mg/dl Creatinine 0.62 (0.6-1.2) mg/dl Est Cr Clr Drug Dosing Not Reportable eGFR 129.05 BUN/Creatinine Ratio 9.7 L (10-20) Glucose 92 (70-99(Fasting)) mg/dl Calcium 8.9 (8.6-10.3) mg/dl Total Bilirubin 2.9 H (0.2-1.0) mg/dl AST 20 (13-39) U/L ALT 12 (7-52) U/L Alkaline Phosphatase 63 (34-104) U/L Total Protein 7.5 (6.0-8.3) gm/dl Albumin 4.3 (3.4-5.0) gm/dl Globulin 3.2 (2.5-4.0) gm/dl Albumin/Globulin Ratio 1.3 (0.9-2) Adenovirus (PCR) Not Detected (NotDetected) B. pertussis DNA (PCR) Not Detected (NotDetected) B.parapertussis DNA PCR Not Detected (NotDetected) C. pneumoniae DNA (PCR) Not Detected (NotDetected) Coronavirus OC43 (PCR) Not Detected (NotDetected) Coronavirus HKU1 (PCR) Not Detected (NotDetected) Coronavirus 229E (PCR) Not Detected (NotDetected) SARS-CoV-2 (PCR) Not Detected (NotDetected) Coronavirus NL63 (PCR) Not Detected (NotDetected) Human Metapneumovir PCR Not Detected (NotDetected) Influenza A (H3) PCR DETECTED A (NotDetected) Influenza Type B (PCR) Not Detected (NotDetected) M. pneumoniae (PCR) Not Detected (NotDetected) Parainfluenza 1 (PCR) Not Detected (NotDetected) Parainfluenza 2 (PCR) Not Detected (NotDetected) Parainfluenza 3 (PCR) Not Detected (NotDetected) Parainfluenza 4 (PCR) Not Detected (NotDetected) RSV (PCR) Not Detected (NotDetected) Entero/Rhino (PCR) Not Detected (NotDetected) Supervising Physician Co-Signing Physician Notes Resident Physician Supervision Note: I personally examined the patient and verified all rendon points of history and exam, discussed case, and agree with decision making with Dr. Hussein 20-year-old female with a history of sickle cell disease who is visiting from [place] presenting with febrile illness. Patient has chronic anemia and asplenia associated with her sickle cell disease and typically sees [facility]. She states her he threshold for transfusion is 5 g of hemoglobin. She has upper respiratory symptoms but no chest infiltrate seen on imaging. She is brought into the facility for treatment with intravenous fluids and Tamiflu in hopes to avert a sickle cell crisis. Her physical exam she appears ill she has coarse breath sounds with no focal Air loss or wheezes her cardiac exam is regular to tachycardic her abdomen although having some pain subjectively objectively is without pain to examination. Continue treatment with IV fluid and Tamiflu therapy. Continued penicillin prophylaxis for asplenia. Transfusion if sickle cell crisis or hemoglobin drop significantly I discussed the case with the resident and agree with the findings and plan as documented in the note. Any exceptions or clarifications are listed here: Documented By: Hugo Restrepo MD Resident Activity Tracking Resident Involvement: Resident Care Provided Care Provided: Adult Hospital Medicine (3) Anemia Anemia type: unspecified type Qualified Code(s): D64.9 - Anemia, unspecified
[2025-02-03] MEDS ORDERED: MoRPHine SULFATE 2 MG/ML CARP IV PRN (18:44)
[2025-02-03] MEDS ORDERED: MoRPHine SULFATE 4 MG/ML 1 ML CARP\\VIAL IV PRN (18:44)
[2025-02-03] MEDS ORDERED: ONDANSETRON INJ 2 MG/ML 2 ML VIAL IV PRN (18:44)
[2025-02-03] MEDS ORDERED: NALOXONE HCL 0.4 MG/1 ML VIAL/CARP IV PRN (18:44)
[2025-02-03] MEDS ORDERED: MELATONIN 3 MG TAB PO PRN (18:54)
[2025-02-03] MEDS ORDERED: diphenhydrAMINE Capsule 25 MG CAP PO PRN (18:56)
[2025-02-03 21:37] LABS: Appearance Urine Clear (Clear); Bacteria Urine Automated 1+ (None Seen); Cast Urine Automated 0-2 /lpf (0-2); Glucose Urine UA Negative (Negative); RBC Urine Automated 0-2 /hpf (0-2); WBC Urine Automated 0-5 /hpf (0-5)
[2025-02-03] MEDS ORDERED: ACETAMINOPHEN IV SCH (21:45)
[2025-02-03] MEDS: ACETAMINOPHEN IV ONE (23:29)
[2025-02-03] MEDS: OSELTAMIVIR PHOSPHATE 75 MG CAP PO ONE (23:29)
[2025-02-03] MEDS: PENICILLIN V POTASSIUM 250 MG TAB PO ONE (23:29)
[2025-02-04] MEDS: KETOROLAC TROMETHAMINE 15 MG/ML VIAL IV PRN (03:52)
[2025-02-04] MEDS: ACETAMINOPHEN IV SCH (05:37)
[2025-02-04 06:17] LABS: Hematocrit (blood only) 17.9 % (37.0-47.0); Hemoglobin 5.8 g/dL (12.0-16.0); Mean Corpuscular Hemoglobin 21.5 pg (25.0-34.0); Mean Corpuscular Volume 66.3 fL (80.0-100.0); Platelet Count 363 K/uL (130-400); RDW Standard Deviation 49.1 fL (36.4-46.3); Red Blood Count 2.70 M/uL (4.20-5.40); White Blood Count 11.60 K/ul (4.8-10.8)
[2025-02-04 06:35] LABS: Alanine Aminotransferase 10.0 U/L (7-52); Albumin Globulin Ratio 1.5 (0.9-2); Albumin Level 3.7 gm/dl (3.4-5.0); Alkaline Phosphatase 51.0 U/L (34-104); Anion Gap 7.0 (3-11); Bilirubin,Total 2.1 mg/dl (0.2-1.0); Blood Urea Nitrogen 6.0 mg/dl (6-23); Calcium 7.6 mg/dl (8.6-10.3); Carbon Dioxide 20.0 mmol/L (21-32); Chloride 109.0 mmol/L (98-107); Creatinine Clr Calc Pharmacy 129.4 ml/min; Globulin 2.4 gm/dl (2.5-4.0); Glucose 104.0 mg/dl (70-99(Fasting)); Potassium 3.4 mmol/L (3.5-5.1); Sodium 136.0 mmol/L (136-145); Total Protein 6.1 gm/dl (6.0-8.3)
--- NOTE | 2025-02-04 07:32 | Billing Data ---
Date of Service February 04, 2025 Coding Level of Care Code 02505 INT INP/OBS CARE
[2025-02-04 07:43] LABS: Acanthocytes 1+; Anisocytosis Present; Basophilic Stippling 1+; Immature Granulocytes # (auto) 0.10 K/uL (0.01-0.20); Immature Granulocytes % (auto) 0.9 %; Polychromasia 3+; Sickle Cells 1+; Target Cells 3+
[2025-02-04] MEDS: OSELTAMIVIR PHOSPHATE 75 MG CAP PO SCH (09:23)
[2025-02-04] MEDS: PENICILLIN V POTASSIUM 250 MG TAB PO SCH (09:23)
[2025-02-04] MEDS: ACETAMINOPHEN 1,000 MG/100 ML VIAL IV PRN (15:47)
--- NOTE | 2025-02-04 16:22 | Hospitalist Progress Note ---
Date of Service February 04, 2025 Assessment & Plan (1) Sickle cell anemia: (2) Asplenia: (3) Anemia: (4) Influenza A: Plan Patient with PMH of SCD and asplenia, presented into the hospital for flu-like symptoms that began last night. Came into the ER stating she was feeling feverish, chills, body aches, and congestion in her chest. ED course got a blood culture and reticulocyte count per protocol. Was given 2.5L of NS, Tylenol 1,000mg, and Toradol 15mg IV. CXR was also done showing minimal left basilar opacities which may represent atelectasis and avascular necrosis of the humeral heads. Patient tested positive for Influenza A. While at bedside in the ER, the patient was experiencing severe stomach cramps that she did not experience before arriving to the hospital. States the pain is throughout her abdomen. Currently denies that current pain is sickle cell pain. CBC showed WBC: 15.58, Hgb: 6.6, Hct:20.6, and Plt: 458 on admission. #Flu/SCD - Was positive for Influenza A. WBC is trending downwards. - H&H is 5.8 and 17.9 but seem to be at baseline. Platelets trended down to normal levels. - Start to transfuse when Hgb is <5.0 - Reticulocyte count is 0.240 which is at baseline. - Due to hx of SCD will manage symptoms with fluids and pain control. - IVF: 100ml of NS - Tylenol 1000mg Q8H scheduled. Toradol for mild pain. Morphine 2mg and 4mg for breakthrough pain. - Due to having itchiness for morphine, ordered Benadryl PRN - Zofran PRN - Tamiflu 75mg BID for positive flu - Follow blood cultures and reticulocyte count. - Continue to monitor for symptoms of sickle cell crisis. - Went to try to get blood transfusion consent but patient denied to sign at this time. Would like to wait to sign until symptoms of a sickle cell crisis arise. - CBC w/diff and CMP AM labs - Spoke with patient's physician at [facility]. She states that current management for patient is reasonable and appropriate. She recommended that if patient starts to have increase O2 requirement, sequestration, hemoglobin below 5 and is symptomatic to give blood transfusion. #Asplenia - Continue penicillin V potassium 250mg Admission and Anticipated Discharge Date Admission Date: February 03, 2025 Supervising Physician Co-Signing Physician Notes Resident Physician Supervision Note: I personally examined the patient and verified all rendon points of history and exam, discussed case, and agree with decision making with Dr. Hussein 20-F history of sickle cell disease who presents with a febrile illness found to have influenza A, patient has chronic anemia and asplenia associated with her sickle cell disease and typically sees [facility]. She states her he threshold for transfusion is 5 g of hemoglobin. She has upper respiratory symptoms but no chest infiltrate seen on imaging. Her physical exam she appears improved but she has had fevers throughout the early breastfeeding care specialist of 04/07. She has coarse breath sounds cardiac exam is regular to tachycardic, abdomen is benign. Continue treatment with IV fluid and Tamiflu therapy. Continued penicillin prophylaxis for asplenia. Transfusion if sickle cell crisis or hemoglobin drop significantly Follow blood cultures consider discharge 02/05/2025 I discussed the case with the resident and agree with the findings and plan as documented in the note. Any exceptions or clarifications are listed here: Documented By: Hugo Restrepo MD Subjective Patient is resting comfortably in her bed this AM. Reports that she is feeling better and has no more stomach pain. Reports she still has a cough and diarrhea once every hour. Spoke with patient in the afternoon and nurse reports she is feeling well with the tylenol. Patient understood that she is not at her baseline and is agreeable to staying overnight. Denies N/V, chest pain, shortness of breath, and pain anywhere else. Review of Systems Review of Systems: as per HPI Physical Exam Constitutional: + acute distress Eyes: + anicteric sclerae and EOM intact bilat erally Respiratory: normal respiratory effort, lungs clear to auscultation Cardiovascular: Rate/Rhythm: regular rate and regular rhythm Heart Sounds: normal S1 and normal S2; no murmur Extremities: no edema Gastrointestinal (Abdomen): Percussion/Palpation: abdomen soft; abdomen nontender Skin: no rashes, warm and dry Psychiatric: Eye Contact: good eye contact Speech: normal rate/rhythm/volume of speech Thought Process: goal directed thought process and linear/logical thought process Insight: good insight Results & Data Results & Data Vital Signs (Past 12 Hours) Vital Signs Temp Pulse Pulse Resp BP Pulse Ox O2 Del Method 02/04/25 13:02 95 H 02/04/25 08:05 37.3 C 82 17 108/68 98 Room Air 02/04/25 08:05 Room Air 02/04/25 08:00 98 H Resident Activity Tracking Resident Involvement: Resident Care Provided Care Provided: Adult Hospital Medicine (3) Anemia Anemia type: unspecified type Qualified Code(s): D64.9 - Anemia, unspecified
--- NOTE | 2025-02-04 17:04 | Billing Data ---
Date of Service February 04, 2025 Coding Level of Care Code 52764 SUB INP/OBS CARE
[2025-02-05 06:32] LABS: Hematocrit (blood only) 18.4 % (37.0-47.0); Hemoglobin 6.2 g/dL (12.0-16.0); Mean Corpuscular Hemoglobin 21.9 pg (25.0-34.0); Mean Corpuscular Volume 65.0 fL (80.0-100.0); Platelet Count 296 K/uL (130-400); RDW Standard Deviation 50.5 fL (36.4-46.3); Red Blood Count 2.83 M/uL (4.20-5.40); White Blood Count 12.84 K/ul (4.8-10.8)
[2025-02-05 07:00] LABS: Alanine Aminotransferase 11.0 U/L (7-52); Albumin Globulin Ratio 1.4 (0.9-2); Albumin Level 4.0 gm/dl (3.4-5.0); Alkaline Phosphatase 45.0 U/L (34-104); Anion Gap 7.0 (3-11); Bilirubin,Total 2.2 mg/dl (0.2-1.0); Blood Urea Nitrogen 4.0 mg/dl (6-23); Calcium 8.1 mg/dl (8.6-10.3); Carbon Dioxide 21.0 mmol/L (21-32); Chloride 110.0 mmol/L (98-107); Creatinine Clr Calc Pharmacy 154.6 ml/min; Globulin 2.8 gm/dl (2.5-4.0); Glucose 85.0 mg/dl (70-99(Fasting)); Potassium 3.4 mmol/L (3.5-5.1); Sodium 138.0 mmol/L (136-145); Total Protein 6.8 gm/dl (6.0-8.3)
[2025-02-05 07:07] LABS: Anisocytosis Present; Immature Granulocytes # (auto) 0.09 K/uL (0.01-0.20); Immature Granulocytes % (auto) 0.7 %; Microcytosis Present; Polychromasia 3+; Sickle Cells 1+; Target Cells 3+; Tear Drop Cells 1+; Toxic Vacuolation 2+
[2025-02-05] MEDS ORDERED: OSELTAMIVIR PHOSPHATE 75 MG CAP PO SCH (10:00)
--- NOTE | 2025-02-05 10:51 | Discharge Summary ---
Date of Service February 05, 2025 Admission HPI Per Admitting Provider Patient with PMH of sickle cell disease, presents into the hospital with flu- like symptoms that begin 10pm last night (02/03). States that she felt feverish (but did not take a formal temperature), chills, congestion in her chest, and body aches. Reports that she wasnt having stomach pain before coming to the hospital, but now is experiencing stomach cramps while on bedside. Patient said that she had sickle cell pain before and the current pain does not feel that way. Shortly after exam had to go to the bathroom and reports she had watery stool and felt better after voiding. Denies any blood in the stool. Went to try to get blood transfusion consent but patient denied to sign at this time. Would like to wait to sign until symptoms of a sickle cell crisis arise. Denies N/V, chest pain, and shortness of breath. Admission Exam Per Admitting Provider Physical Exam Constitutional: + acute distress Eyes: + anicteric sclerae and EOM intact bilat erally Respiratory: normal respiratory effort, lungs clear to auscultation Cardiovascular: Rate/Rhythm: regular rhythm and + tachycardic Heart Sounds: normal S1 and normal S2; no murmur Gastrointestinal (Abdomen): Percussion/Palpation: + abdomen tender (throughout but worse in LLQ) and abdomen soft Skin: no rashes, warm and dry Psychiatric: Eye Contact: good eye contact Speech: normal rate/rhythm/volume of speech Thought Process: goal directed thought process and linear/logical thought process Insight: good insight Principal Diagnosis Influenza A with Hx of SCD Discharge Exam Constitutional + acute distress Eyes + anicteric sclerae and EOM intact bilaterally Respiratory normal respiratory effort, lungs clear to auscultation Cardiovascular Rate/Rhythm: regular rate, regular rhythm and + tachycardic Heart Sounds: normal S1 and normal S2; no murmur Extremities: no edema Gastrointestinal (Abdomen) Percussion/Palpation: abdomen soft; abdomen nontender Skin no rashes, warm and dry Psychiatric Eye Contact: good eye contact Speech: normal rate/rhythm/volume of speech Thought Process: goal directed thought process and linear/logical thought process Insight: good insight Discharge Data Allergies Allergy/AdvReac Type Severity Reaction Status Date / Time ceftriaxone Allergy FACIAL Verified 10/16/23 22:03 SWELLING fentanyl Allergy Itching Verified 10/16/23 21:59 hydromorphone Allergy Itching Verified 10/16/23 22:01 morphine Allergy Itching Verified 10/16/23 21:58 oxycodone Allergy Itching Verified 10/16/23 22:00 Consultations 02/03/25 17:39 ED Decision to Admit Stat 02/05/25 08:25 Consult [facility] office coordinator Stat 02/05/25 09:40 Consult [facility] hosp[facility] office coordinator Stat Hospital Course (1) Sickle cell anemia: (2) Asplenia: (3) Anemia: (4) Influenza A: Plan Patient with PMH of SCD and asplenia, presented into the hospital for flu-like symptoms that began last night. Came into the ER stating she was feeling feverish, chills, body aches, and congestion in her chest. ED course got a blood culture and reticulocyte count per protocol. Was given 2.5L of NS, Tylenol 1,0 00mg, and Toradol 15mg IV. CXR was also done showing minimal left basilar opacities which may represent atelectasis and avascular necrosis of the humeral heads. Patient tested positive for Influenza A. While at bedside in the ER, the patient was experiencing severe stomach cramps that she did not experience before arriving to the hospital. States the pain is throughout her abdomen. Currently denies that current pain is sickle cell pain. CBC showed WBC: 15.58, Hgb: 6.6, Hct:20.6, and Plt: 458 on admission. #Flu/SCD - Was positive for Influenza A. WBC is trending downwards. - H&H is 5.8 and 17.9 but seem to be at baseline. Platelets trended down to normal levels. - Start to transfuse when Hgb is <5.0 - Reticulocyte count is 0.240 which is at baseline. - Due to hx of SCD will manage symptoms with fluids and pain control. - IVF: 100ml of NS - Tylenol 1000mg Q8H PRN. Toradol for mild pain. Morphine 2mg and 4mg for breakthrough pain. Patient did not take Tylenol overnight (02/04-02/05) - Due to having itchiness for morphine, ordered Benadryl PRN - Zofran PRN - Tamiflu 75mg BID for positive flu - Blood culture showed no growth after 24 hours. - Continue to monitor for symptoms of sickle cell crisis. - Went to try to get blood transfusion consent but patient denied to sign at this time. Would like to wait to sign until symptoms of a sickle cell crisis arise. - CBC w/diff and CMP AM labs - Spoke with patient's physician at [facility]. She states that current management for patient is reasonable and appropriate. She recommended that if patient starts to have increase O2 requirement, sequestration, hemoglobin below 5 and is symptomatic to give blood transfusion. - Patient expressed that she is feeling very well today. She feels that her diarrhea is better and feels that she can drive back home safely. Discussed plan with patient along with patient's mother that was on the phone. Discussed that if she has a fever, shortness of breath, and signs of sickle cell pain to go to the ER to monitor symptoms along with a CXR. Patient and patient's mother was in agreement and patient's mother states she will keep a close eye on the patient and if she feels unwell she will take the patient to the ER. Patient also stated that she will take a short stop during her drive to rest before continuing the rest of the drive. - Continue taking tylenol and motrin as needed for pain and fever. - See PCP within the next week and get repeat CBC w/diff to monitor hemoglobin within a week as well. #Asplenia - Continue penicillin V potassium 250mg Total Time Total Time Spent Total Time Spent (In Minutes): as per attending Discharge Plan Discharge Items Patient Disposition: Home - Self-Care Reason For Visit: FLU LIKE SYMPTOMS WITH HX OF SCD Discharge Diagnosis: Flu with Hx of SCD Activity: Resume your previous activity Non-emergency contact: Primary Care Provider Call non-emergency contact if: your symptoms worsen, your pain is not controlled, your pain is worsening and your temperature is above 101.5 Follow-up/Referrals: Sherrie Oreilly CRNP [Primary Care Provider] - Diet: Regular Addtl Attending Provider Instructions: When you came into the ER you tested positive for the flu, and with your history of sickle cell, we admitted you into the hospital. We provided fluids to help with dehydration and pain medications to prevent a sickle cell crisis. We also gave Tamiflu to help combat the flu and help you feeling better sooner. Continue to take Tylenol and Motrin as needed to help with your fever and to keep ahead of the pain. Please follow up with your PCP in the next week and get repeat labs to monitor your hemoglobin next week. Continue to drink a lot of fluids. New Medication -Tamiflu 75mg. Take one more dose this evening. Then take one tablet twice a day for 3 more days. One of the side effects of tamiflu is diarrhea and stomach upset. CONTACT YOUR PRIMARY CARE PROVIDER if you experience any of the following: Worsening of symptoms Fever, chills, or fatigue Difficulty following your treatment plan, or difficulty taking medications CALL 911 OR GO TO THE EMERGENCY DEPARTMENT if you experience any of the following: Sudden, severe abdominal pain or nausea/vomiting Severe chest pain, or chest pain that radiates (moves) to your jaw or arm Sudden, severe shortness of breath or difficulty breathing If you are having a fever, worsening cough, shortness of breath, please go to the ER to check your hemoglobin as well as get a chest x-ray done. It was a pleasure treating you. Have a Afshan Quiles! Pending Studies at Discharge: No Stand-Alone Forms: My [facility], Smoking Cessation Medications and DC Order Prescriptions: New oseltamivir [Tamiflu] 75 mg Capsule 75 mg PO BID Qty: 7 0RF Continued Droxia 400 mg capsule 1,600 mg PO Q2D Rx Instructions: 10/16/23 PT REPORTS SHE TAKES THIS MED DAILY penicillin V potassium 250 mg Tablet 250 mg PO BID Rx Instructions: 10/16/23 [facility] folic acid 1 mg Tablet 1 mg PO DAILY naproxen 375 mg tablet 375 mg PO BID Rx Instructions: take with food sertraline 100 mg tablet 100 mg PO DAILY Discharge Orders: Discharge Order (Routine); Ordered 02/05/25 Ordered By: Sonny Cooper/Other Patient Handouts: Sickle Cell Anemia, The Flu (Influenza), ED Influenza (Adult), ED Sickle Cell Pain Crisis Admission Data Admit Date/Time: 02/03/25 18:53 Attending Provider: Abdullahi Whitt Admit Provider: Sonny Hussein Primary Care Provider: Sherrie Oreilly Other Providers: Hugo Restrepo Other Interventions: Discharge Summary Assessment (RN) Last Done: 02/05/25 11:24 Supervising Physician Co-Signing Physician Notes Patient seen and examined, chart reviewed, case discussed with Dr. Hussein and I agree with the assessment and plan as above except as otherwise noted above. General: A&Ox3. NAD. Cooperative. HEENT: Atraumatic, normocephalic. Pulm: CTAB A&P. -wheezes, -rales, -rhonchi. Symmetrical chest rise. No increase work of breathing. No respiratory distress. Cardiac: RRR, -mrg. Radial pulses intact and symmetrical. Abdominal: Nontender, nondistended, soft. BS present. All labs and images reviewed Seen at the bedside prior to discharge. She reports she feels much better, well, and nearly back to baseline. No chest pain. No extremity pain. No dyspnea. Intermittent cough with some light colored sputum. No fevers or chills. Suspect leukocytosis from demargination, there is no left shift. 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 She has clinically progressed, hgb is uptrending, and she feels at her baseline. She strongly prefers to return [place] eunder the care of her mother, and reports she is very comfortable with return precautions and if she had complications would prefer to follow at [facility]. she will be under the care of her mother for the next few days. Given this reasonable for d/c with 5 days of tamiflu. Agree w/ above Resident Activity Tracking Resident Involvement: Resident Care Provided Care Provided: Adult Hospital Medicine
[2025-02-05] MEDS: POTASSIUM CHLORIDE CRTAB 20 MEQ TABCR PO STA (11:38)
[2025-02-05 12:22] VITALS: BP 110/68; PULSE 98; RESP 17; TEMP 98.8; O2SAT 94
--- NOTE | 2025-02-05 13:25 | Billing Data ---
Date of Service February 05, 2025 Coding Level of Care Code 10799 INP/OBS DISCH >30 MIN
== END 2025-02-05 12:00 | disposition home or self-care (01) | DRG 194 ==
LOC: ED 12:57 → EDINP 18:53 → SUATTDRO 18:53 → 4W 21:24